=== PATIENT | female | born 1970 | race Caucasian/White ===

== ENCOUNTER 2021-05-11 21:18 | Emergency (ER) | payer OTHER, SELFPAY ==
[2021-05-11 21:56] VITALS: BP 192/111; PULSE 107; RESP 19; TEMP 36.9; O2SAT 97; BMI 44.2
[2021-05-11 22:13] LABS: COVID-19 Test Positive (Negative)
--- NOTE | 2021-05-11 22:53 | ED.URI ---
HPI - URI/Sore Throat General Chief Complaint: Upper Respiratory Symptoms Stated Complaint: + covid sob exhaustion Time Seen by Provider: 05/11/21 22:51 Source: patient Mode of arrival: ambulatory History of Present Illness HPI Narrative: 50-year-old female who states she was exposed to COVID this past Wednesday and began having symptoms on Wednesday with headache, fatigue, diarrhea, dry cough, and sore throat. Related Data Allergies Allergy/AdvReac Type Severity Reaction Status Date / Time shellfish derived Allergy Swelling Verified 05/11/21 22:01 Review of Systems Review of Systems: Pertinent positives and negatives as stated in HPI 10 point review systems is otherwise negative. PMFSH Past Medical History Source: nursing notes reviewed Social History Social History Advance Directives: No Advance Directives Information Provided: No Patient : No Physical Exam Vital Signs: Vital Signs: Last Vital Signs Temp 98.4 F 05/11/21 21:56 Pulse 104 H 05/11/21 23:51 Resp 17 05/11/21 23:51 BP 170/90 H 05/11/21 23:51 Pulse Ox 98 05/11/21 23:51 BMI result Body Mass Index 44.2 VITAL SIGNS: Reviewed. GENERAL: Well developed, well nourished, in no acute distress. HEAD: Normocephalic/atraumatic EYES: PERRLA, EOMI EARS: Ext canals without abnormality, TMs non-bulging and non-erythematous NOSE: Nares patent bilateral OROPHARYNX: no oral lesions noted, posterior pharynx clear and non-erythematous without noted tonsillar enlargement/erythema/exudates NECK: Supple, no adenopathy LUNGS: Normal breath sounds. No adventitious sounds or accessory muscle use. SpO2<98> CARDIOVASCULAR: Regular rate and rhythm without noted murmurs NEUROLOGIC: Alert and oriented x 4. Course Course Course Narrative: 50-year-old female with history and clinical presentation consistent with viral syndrome and on review patient is COVID-19 positive is otherwise afebrile and oxygenating at 98% room air. Patient was informed results and instructed on isolation procedures and discharged home in stable condition. MDM - URI/Sore Throat Lab Data Labs: Lab Results 05/11/21 Range/Units 22:02 COVID-19 ([facility]A) Positive A (Negative) COVID-19 Clin Com See Note Discharge Plan Discharge Clinical Impression: Lab test positive for detection of COVID-19 virus, Viral syndrome Patient Disposition: Home, Self-Care Instructions: Viral Syndrome (ED), COVID-19 (Coronavirus Disease 2019) (ED) Additional Instructions: 1. You must isolate yourself for the next 14 days as per all state, Federal guidelines. 2. Use [id number] Tylenol/ibuprofen as needed for body aches, temperatures greater than 100.4. 3. Set up a telemedicine appointment with your primary care provider tomorrow morning for re-evaluation in 2-3 days. Return to the ER for worsening symptoms. Interventions: ED Discharge Assessment Last Done: 05/11/21 23:51 Discharge Date/Time: 05/11/21 23:52
[2021-05-11] MEDS: Acetaminophen 325 MG TABLET 975 MG PO (23:44)
[2021-05-11] MEDS: Ibuprofen 400 MG TABLET PO (23:44)
[2021-05-11 23:51] VITALS: BP 170/90; PULSE 104; RESP 17; O2SAT 98
== END 2021-05-11 23:52 | disposition home or self-care (01) ==
PROVIDERS: Emergency Provider Student in an Organized Health Care Education/Training Program
DX: U07.1 COVID-19 (principal); B34.9 Viral infection, unspecified
CPT/HCPCS: 36415; 87635; 99283

== ENCOUNTER 2022-08-02 12:26 | Emergency (ER) | payer OTHER, SELFPAY ==
--- NOTE | ~2022-08-02 | CT_ITS ---
EXAMINATION: CT abdomen pelvis wo IV con CLINICAL INFORMATION: Right flank pain COMPARISON: No prior CT available for comparison. TECHNIQUE: Multidetector volumetric imaging was performed from the superior aspect of the liver through the pubic symphysis , noncontrasted study. Sagittal and coronal reformatted images were obtained on the technologist's workstation. This CT examination was performed using dose optimization techniques as appropriate, variously including the following: *Automated exposure control *Adjustment of mA and/or kV according to patient size (this includes techniques or standardized protocols for targeted exams where dose is matched to indication/reason for exam; i.e. extremities or head) *Use of iterative reconstruction technique DLP: 891 mGy-cm FINDINGS: LOWER THORAX: Included lung bases are clear. HEPATOBILIARY: Hypodensity in the right lobe of the liver 0.4 by 0.7 cm not well characterized on this noncontrast CT scan. Could be a cyst or a small hemangioma, Liver otherwise unremarkable. GALLBLADDER: Gallbladder unremarkable. SPLEEN: Spleen is normal in size. PANCREAS: No focal mass or ductal dilatation. STOMACH AND GASTROINTESTINAL TRACT: Stomach is grossly unremarkable. There is no bowel distention or thickening. No CT evidence of appendicitis. ADRENALS: No adrenal nodules. KIDNEYS/URETERS: There is mild perinephric fat stranding around the right kidney and right renal pelvis, right ureteric, without significant ureteric dilatation hydronephrosis or radiodense stone, could be sequela of possible nephritis, recently passed stone, cystitis, reflux among others. No hydronephrosis on either side. URINARY BLADDER: Circumferential wall thickening of the urinary bladder in parts due to its nondilation, this also has been described with possible cystitis. PELVIC VISCERA: Unremarkable PERITONEUM: No free air or fluid. LYMPH NODES: No lymphadenopathy. VASCULAR:Abdominal aorta normal in size, no aneurysm found. BONES, ABDOMINAL WALL AND SOFT TISSUES: Age-appropriate changes of the spine and skeletal system, no destructive osteolytic or osteosclerotic bone lesion found CT/CT abdomen pelvis wo IV con IMPRESSION: * There is mild perinephric fat stranding around the right kidney and right renal pelvis, also around the proximal right ureteric, without significant ureteric dilatation or radiodense stone, this could be sequela of possible infection or inflammatory nephritis, ureteritis, versus recently passed stone, versus cystitis, or reflux among others. * Circumferential wall thickening of the urinary bladder in parts due to its nondilation, this also has been described with possible cystitis. Please correlate with patient's laboratory data. * Subcentimeter hypodensity in the right lobe of the liver not well characterized on this noncontrast CT scan, could be a cyst or a small hemangioma. If patient high-risk consider correlation with follow-up investigation starting with ultrasound.
--- NOTE | 2022-08-02 12:40 | ED_ITS ---
HPI - Abdominal Pain General Chief Complaint: Urogenital-Female <Stephanie Freeman NP - Last Filed: 08/02/22 12:43> Stated Complaint: ? Kidney Stones <Stephanie Freeman NP - Last Filed: 08/02/22 12:43> Time Seen by Provider: 08/02/22 13:00 <Stephanie Freeman NP - Last Filed: 08/02/22 12:43> Source: patient <Juan Amaya MD - Last Filed: 08/02/22 15:41> Mode of arrival: ambulatory <Juan Amaya MD - Last Filed: 08/02/22 15:41> Limitations: no limitations <Juan Amaya MD - Last Filed: 08/02/22 15:41> History of Present Illness HPI narrative: 51-year-old female with otherwise healthy presented today with increase urinary frequency, dysuria, patient's symptoms started 6 days ago, patient woke up this morning with severe right lower back pain, no fever, no chills complain of some nausea but no vomiting, normal bowel movement and normal passing gas. No significant past surgical history to the abdomen. <Juan Amaya MD - Last Fi led: 08/02/22 15:41> Related Data Home Medications: Previous Rx's Medication Instructions Recorded cefuroxime axetil 500 mg tablet 500 mg PO BID #20 tabs 08/02/22 phenazopyridine 200 mg tablet 200 mg PO TID 6 doses #6 tabs 08/02/22 (Pyridium) <Stephanie Freeman NP - Last Filed: 08/02/22 12:43> Allergies/Adverse Reactions: Allergies Allergy/AdvReac Type Severity Reaction Status Date / Time shellfish derived Allergy Swelling Verified 05/11/21 22:01 <Stephanie Freeman NP - Last Filed: 08/02/22 12:43> Review of Systems Review of Systems All other systems are reviewed and are negative Constitutional: Reports as per HPI and Reports no additional constitutional complaints Eyes: Reports as per HPI and Reports no additional eye complaints Reports system reviewed and no additional complaints, except as documented Cardiovascular: Reports as per HPI and Reports no additional cardiovascular complaints Respiratory: Reports as per HPI and Reports no additional respiratory complaints Gastrointestinal: Reports as per HPI and Reports no additional gastrointestinal complaints Genitourinary: Reports no additional female genitourinary complaints Musculoskeletal: Reports no additional musculoskeletal complaints Skin/Breast: Reports system reviewed and no additional complaints, except as docu Psychiatric: Reports no additional psychiatric complaints Endocrine: Reports no additional endocrine complaints Hematologic/Lymphatic: Reports no additional hematologic/lymphatic complaints Allergic/Immunologic: Reports no additional allergic/immunologic complaints Reports system reviewed and no additional complaints, except as documented and Reports Abnormal speech present <Juan Amaya MD - Last Filed: 08/02/22 15:41> [facility] Social History Social History: Social History Advance Directives: No Advance Directives Information Provided: Yes <Stephanie Freeman NP - Last Filed: 08/02/22 12:43> Physical Exam ED Vital Signs: Vital Signs - 24 hr 08/02/22 12:41 08/02/22 14:09 Temperature 97 F 98.9 F Pulse Rate 130 H 105 H Respiratory Rate 18 13 Blood Pressure 207/113 H 156/98 H Pulse Oximetry 98 96 Oxygen Delivery Method Room Air Room Air BMI result Body Mass Index 46.0 <Stephanie Freeman NP - Last Filed: 08/02/22 12:43> Vital Signs - 24 hr 08/02/22 12:41 08/02/22 14:09 Temperature 97 F 98.9 F Pulse Rate 130 H 105 H Respiratory Rate 18 13 Blood Pressure 207/113 H 156/98 H Pulse Oximetry 98 96 Oxygen Delivery Method Room Air Room Air BMI result Body Mass Index 46.0 Vital signs have been reviewed as appeared to be correct. Blood pressure normal. Heart rate elevated. Respiration rate normal. Temperature normal. Oxygen saturation normal. <Juan Amaya MD - Last Filed: 08/02/22 15:41> Appearance: Alert. Oriented X3. No acute distress. Head: Normal external exam. Normocephalic. Atraumatic. No Garcia signs noted. No raccoon eyes noted Eyes: PERRLA. EOMI. Conjunctiva and sclera normal. Eyelids normal. ENT: TM's Normal. Pharynx normal. Uvula midline. Moist mucous membranes. No trismus noted. No drooling noted. No muffled voice noted. Neck: Normal inspection. Neck supple. FROM. No adenopathy. Thyroid Normal. No meningeal signs. No neck mass noted. CVS: Normal heart rate and rhythm. Heart sound normal. No murmurs noted. Pulses normal throughout. Respiratory: No respiratory distress. Painless inspiration. Breath sounds normal. No wheezes/rales/rhonchi noted. Chest nontender. No accessory muscle usage noted or decreased air movement noted. Abdomen: Soft and nontender. Bowel sounds normal in all 4 quadrants. No distention noted. No organomegaly noted. No visible injury noted. Back: Right CVA tenderness. Full range of motion noted. Skin: Skin warm and dry. Normal skin color. Normal skin turgor. No rash es/lesions/lacerations noted. Extremities: No lower extremity edema. Extremities exhibit normal range of motion. Extremities nontender. Neuro: Oriented X 3. Cranial nerve exam: II-XII are grossly intact No motor deficit. No sensory deficit. Reflexes normal. <Juan Amaya MD - Last Filed: 08/02/22 15:41> Course Course Course Narrative: This is a rapid medical exam. Deferred additional HPI, ROS, PE to primary provider. 51 yo female with no known medical problems here with 6 days of urinary pressure, frequency, voiding small amounts and right lower back pain w/ nausea. No fevers, chills. Will obtain labs, UA, ur preg. Hypetensive in triage, tachycardic. ?secondary to pain. <Stephanie Freeman NP - Last Filed: 08/02/22 12:43> Reevaluation(s) Reevaluation #1: 51-year-old female came in with right flank pain after having few days of dysuria and frequency urination. Physical exam and CT are consistent with right pyelonephritis patient will get 1st dose of ceftriaxone and will be going home on cefuroxime for 10 days patient was encouraged to drink plenty of fluids and follow up with her PCP. Initially when patient came in with hypertensive and tachycardic which is due to right CVA pain that is improved after was given pain medication. <Juan Amaya MD - Last Filed: 08/02/22 15:41> Time: 14:32 <Juan Amaya MD - Last Filed: 08/02/22 15:41> Medical Decision Making Differential Diagnosis Differential Diagnoses: The differential diagnosis associated with the presentation includes (Back pain, obstructing uropathy, pyelonephritis, colitis, diverticulitis, myofascial pain) <Juan Amaya MD - Last Filed: 08/02/22 15:41> Lab Data MDM Lab Attestation statement: I reviewed the patient's lab results. <Juan Amaya MD - Last Filed: 08/02/22 15:41> Result Diagrams: 08/02/22 12:54 08/02/22 12:54 <Stephanie Freeman NP - Last Filed: 08/02/22 12:43> Labs: Lab Results 08/02/22 08/02/22 08/02/22 Range/Units 12:51 12:51 12:51 WBC (4.8-10.8) X10*3/uL RBC (4.20-5.50) X10*6/uL Hgb (12.0-16.0) g/dl Hct (37.0-47.0) % MCV (80.0-98.0) fL MCH (27.0-33.0) pg MCHC (31.0-35.0) g/dl RDW (11.0-16.0) % Plt Count (160-400) X10*3/uL MPV (9.4-12.3) fL Immature Gran % (Auto) (0.0-0.4) % Neut % (Auto) (45-73) % Lymph % (Auto) (20-40) % [place] % (Auto) (2-11) % Eos % (Auto) (0-4) % Baso % (Auto) (0-2) % Lymph # (Auto) (1.2-4.9) X10*3/uL [place] # (Auto) (0.1-1.2) X10*3/uL Eos # (Auto) (0.0-0.4) X10*3/uL Baso # (Auto) (0.0-0.2) X10*3/uL Abs Immat Gran (auto) (0.00-0.03) X10*3/uL Absolute Neuts (auto) (2.0-8.3) x10*3/uL Absolute Nucleated RBC (0.0-0.012) X10*3/uL Nucleated RBC % (auto) (0.0-0.2) /100WBC Sodium (135-145) mmol/L Potassium (3.3-5.1) mmol/L Chloride (96-108) mmol/L Carbon Dioxide (22-29) mmol/L Anion Gap (12-20) BUN (9-16) mg/dL Creatinine (0.5-1.4) mg/dL Estim Creat Clear Calc Estimated GFR Random Glucose (60-115) mg/dL Lactic Acid (0.5-2.0) mmol/L Calcium (8.4-10.2) mg/dL Total Bilirubin (0.0-1.0) mg/dL Direct Bilirubin (0.0-0.5) mg/dL AST (5-31) U/L ALT (0-31) U/L Alkaline Phosphatase (39-117) U/L Total Protein (6.5-8.0) g/dL Albumin (3.5-5.0) g/dL Urine Color Dark Yellow Urine Appearance Turbid Urine pH 6.0 (5.0-9.0) Ur Specific [place] 1.020 (1.005-1.025) Urine Protein >=1000 (4+) H (Neg-Trace) mg/dL Urine Glucose (UA) Negative (Negative) mg/dL Urine Ketones Trace (Negative) mg/dL Urine Blood Large (3+) H (Negative) Urine Nitrite Positive H (Negative) Ur Leukocyte Esterase Large (3+) H (Negative) Urine RBC >20 H (0-2) /HPF Urine WBC >50 H (0-5) /HPF Ur Squamous Epith Cells 3-5 (0-2) /HPF Urine Bacteria 3+ (None Seen) Hyaline Casts 0-2 (0-2) /LPF Urine Test NEGATIVE (NEGATIVE) COVID-19 ([facility]IRA) Negative (Negative) COVID-19 Clin Com See Note 08/02/22 08/02/22 08/02/22 Range/Units 12:54 12:54 14:04 WBC 10.7 (4.8-10.8) X10*3/uL RBC 4.53 (4.20-5.50) X10*6/uL Hgb 14.3 (12.0-16.0) g/dl Hct 43.0 (37.0-47.0) % MCV 94.9 (80.0-98.0) fL MCH 31.6 (27.0-33.0) pg MCHC 33.3 (31.0-35.0) g/dl RDW 12.4 (11.0-16.0) % Plt Count 266 (160-400) X10*3/uL MPV 11.3 (9.4-12.3) fL Immature Gran % (Auto) 0.4 (0.0-0.4) % Neut % (Auto) 82.4 H (45-73) % Lymph % (Auto) 8.6 L (20-40) % [place] % (Auto) 5.9 (2-11) % Eos % (Auto) 2.2 (0-4) % Baso % (Auto) 0.5 (0-2) % Lymph # (Auto) 0.9 L (1.2-4.9) X10*3/uL [place] # (Auto) 0.6 (0.1-1.2) X10*3/uL Eos # (Auto) 0.2 (0.0-0.4) X10*3/uL Baso # (Auto) 0.1 (0.0-0.2) X10*3/uL Abs Immat Gran (auto) 0.04 H (0.00-0.03) X10*3/uL Absolute Neuts (auto) 8.8 H (2.0-8.3) x10*3/uL Absolute Nucleated RBC 0.000 (0.0-0.012) X10*3/uL Nucleated RBC % (auto) 0.0 (0.0-0.2) /100WBC Sodium 144 (135-145) mmol/L Potassium 3.9 (3.3-5.1) mmol/L Chloride 105 (96-108) mmol/L Carbon Dioxide 25 (22-29) mmol/L Anion Gap 18 (12-20) BUN 8 L (9-16) mg/dL Creatinine 0.78 (0.5-1.4) mg/dL Estim Creat Clear Calc 108.2 Estimated GFR > 60 Random Glucose 111 (60-115) mg/dL Lactic Acid 1.2 (0.5-2.0) mmol/L Calcium 9.6 (8.4-10.2) mg/dL Total Bilirubin 1.8 H (0.0-1.0) mg/dL Direct Bilirubin 0.4 (0.0-0.5) mg/dL AST 12 (5-31) U/L ALT 18 (0-31) U/L Alkaline Phosphatase 94 (39-117) U/L Total Protein 6.9 (6.5-8.0) g/dL Albumin 4.4 (3.5-5.0) g/dL Urine Color Urine Appearance Urine pH (5.0-9.0) Ur Specific [place] (1.005-1.025) Urine Protein (Neg-Trace) mg/dL Urine Glucose (UA) (Negative) mg/dL Urine Ketones (Negative) mg/dL Urine Blood (Negative) Urine Nitrite (Negative) Ur Leukocyte Esterase (Negative) Urine RBC (0-2) /HPF Urine WBC (0-5) /HPF Ur Squamous Epith Cells (0-2) /HPF Urine Bacteria (None Seen) Hyaline Casts (0-2) /LPF Urine Test (NEGATIVE) COVID-19 ([facility]IRA) (Negative) COVID-19 Clin Com <Stephanie Freeman [employer] - Last Filed: 08/02/22 12:43> Lab Results 08/02/22 08/02/22 08/02/22 Range/Units 12:51 12:51 12:51 WBC (4.8-10.8) X10*3/uL RBC (4.20-5.50) X10*6/uL Hgb (12.0-16.0) g/dl Hct (37.0-47.0) % MCV (80.0-98.0) fL MCH (27.0-33.0) pg MCHC (31.0-35.0) g/dl RDW (11.0-16.0) % Plt Count (160-400) X10*3/uL MPV (9.4-12.3) fL Immature Gran % (Auto) (0.0-0.4) % Neut % (Auto) (45-73) % Lymph % (Auto) (20-40) % [place] % (Auto) (2-11) % Eos % (Auto) (0-4) % Baso % (Auto) (0-2) % Lymph # (Auto) (1.2-4.9) X10*3/uL [place] # (Auto) (0.1-1.2) X10*3/uL Eos # (Auto) (0.0-0.4) X10*3/uL Baso # (Auto) (0.0-0.2) X10*3/uL Abs Immat Gran (auto) (0.00-0.03) X10*3/uL Absolute Neuts (auto) (2.0-8.3) x10*3/uL Absolute Nucleated RBC (0.0-0.012) X10*3/uL Nucleated RBC % (auto) (0.0-0.2) /100WBC Sodium (135-145) mmol/L Potassium (3.3-5.1) mmol/L Chloride (96-108) mmol/L Carbon Dioxide (22-29) mmol/L Anion Gap (12-20) BUN (9-16) mg/dL Creatinine (0.5-1.4) mg/dL Estim Creat Clear Calc Estimated GFR Random Glucose (60-115) mg/dL Lactic Acid (0.5-2.0) mmol/L Calcium (8.4-10.2) mg/dL Total Bilirubin (0.0-1.0) mg/dL Direct Bilirubin (0.0-0.5) mg/dL AST (5-31) U/L ALT (0-31) U/L Alkaline Phosphatase (39-117) U/L Total Protein (6.5-8.0) g/dL Albumin (3.5-5.0) g/dL Urine Color Dark Yellow Urine Appearance Turbid Urine pH 6.0 (5.0-9.0) Ur Specific [place] 1.020 (1.005-1.025) Urine Protein >=1000 (4+) H (Neg-Trace) mg/dL Urine Glucose (UA) Negative (Negative) mg/dL Urine Ketones Trace (Negative) mg/dL Urine Blood Large (3+) H (Negative) Urine Nitrite Positive H (Negative) Ur Leukocyte Esterase Large (3+) H (Negative) Urine RBC >20 H (0-2) /HPF Urine WBC >50 H (0-5) /HPF Ur Squamous Epith Cells 3-5 (0-2) /HPF Urine Bacteria 3+ (None Seen) Hyaline Casts 0-2 (0-2) /LPF Urine Test NEGATIVE (NEGATIVE) COVID-19 (HIRA) Negative (Negative) COVID-19 Clin Com See Note 08/02/22 08/02/22 08/02/22 Range/Units 12:54 12:54 14:04 WBC 10.7 (4.8-10.8) X10*3/uL RBC 4.53 (4.20-5.50) X10*6/uL Hgb 14.3 (12.0-16.0) g/dl Hct 43.0 (37.0-47.0) % MCV 94.9 (80.0-98.0) fL MCH 31.6 (27.0-33.0) pg MCHC 33.3 (31.0-35.0) g/dl RDW 12.4 (11.0-16.0) % Plt Count 266 (160-400) X10*3/uL MPV 11.3 (9.4-12.3) fL Immature Gran % (Auto) 0.4 (0.0-0.4) % Neut % (Auto) 82.4 H (45-73) % Lymph % (Auto) 8.6 L (20-40) % [place] % (Auto) 5.9 (2-11) % Eos % (Auto) 2.2 (0-4) % Baso % (Auto) 0.5 (0-2) % Lymph # (Auto) 0.9 L (1.2-4.9) X10*3/uL [place] # (Auto) 0.6 (0.1-1.2) X10*3/uL Eos # (Auto) 0.2 (0.0-0.4) X10*3/uL Baso # (Auto) 0.1 (0.0-0.2) X10*3/uL Abs Immat Gran (auto) 0.04 H (0.00-0.03) X10*3/uL Absolute Neuts (auto) 8.8 H (2.0-8.3) x10*3/uL Absolute Nucleated RBC 0.000 (0.0-0.012) X10*3/uL Nucleated RBC % (auto) 0.0 (0.0-0.2) /100WBC Sodium 144 (135-145) mmol/L Potassium 3.9 (3.3-5.1) mmol/L Chloride 105 (96-108) mmol/L Carbon Dioxide 25 (22-29) mmol/L Anion Gap 18 (12-20) BUN 8 L (9-16) mg/dL Creatinine 0.78 (0.5-1.4) mg/dL Estim Creat Clear Calc 108.2 Estimated GFR > 60 Random Glucose 111 (60-115) mg/dL Lactic Acid 1.2 (0.5-2.0) mmol/L Calcium 9.6 (8.4-10.2) mg/dL Total Bilirubin 1.8 H (0.0-1.0) mg/dL Direct Bilirubin 0.4 (0.0-0.5) mg/dL AST 12 (5-31) U/L ALT 18 (0-31) U/L Alkaline Phosphatase 94 (39-117) U/L Total Protein 6.9 (6.5-8.0) g/dL Albumin 4.4 (3.5-5.0) g/dL Urine Color Urine Appearance Urine pH (5.0-9.0) Ur Specific [place] (1.005-1.025) Urine Protein (Neg-Trace) mg/dL Urine Glucose (UA) (Negative) mg/dL Urine Ketones (Negative) mg/dL Urine Blood (Negative) Urine Nitrite (Negative) Ur Leukocyte Esterase (Negative) Urine RBC (0-2) /HPF Urine WBC (0-5) /HPF Ur Squamous Epith Cells (0-2) /HPF Urine Bacteria (None Seen) Hyaline Casts (0-2) /LPF Urine Test (NEGATIVE) COVID-19 (HIRA) (Negative) COVID-19 Clin Com <Juan Amaya MD - Last Filed: 08/02/22 15:41> Independent Interpretation I performed an independent interpretation of an: CT Scan (Abdomen: Mild perinephric fat stranding around the right kidney.) <Juan Amaya MD - Last Filed: 08/02/22 15:41> Radiology Impression Discussion of test interpretation with radiology: I have reviewed the radiologist's reading. <Juan Amaya MD - Last Filed: 08/02/22 15:41> Medications Administered Discontinued Medications Generic Name Dose Route Start Last Admin Trade Name Freq PRN Reason Stop Dose Admin Cefuroxime Axetil 500 mg 08/02/22 14:38 08/02/22 15:33 Cefuroxime Axetil 500 Mg Tablet PO 08/02/22 14:39 500 mg ONCE ONE Administration Sodium Chloride 1,000 mls @ 999 mls/hr 08/02/22 13:10 08/02/22 13:34 Ns IV 08/02/22 14:10 999 mls/hr .Q1H1M ONE Administration Ceftriaxone Sodium 1 gm/ 50 mls @ 100 mls/hr 08/02/22 13:40 08/02/22 15:33 Sodium Chloride IV 08/02/22 14:09 Infused ONCE ONE Infusion Morphine Sulfate 4 mg 08/02/22 13:10 08/02/22 13:37 Morphine Sulfate 4 Mg/Ml Cartridge IVPUSH 08/02/22 13:11 4 mg ONCE ONE Administration Protocol <Stephanie Freeman NP - Last Filed: 08/02/22 12:43> Medications Administered Discontinued Medications Generic Name Dose Route Start Last Admin Trade Name Freq PRN Reason Stop Dose Admin Cefuroxime Axetil 500 mg 08/02/22 14:38 08/02/22 15:33 Cefuroxime Axetil 500 Mg Tablet PO 08/02/22 14:39 500 mg ONCE ONE Administration Sodium Chloride 1,000 mls @ 999 mls/hr 08/02/22 13:10 08/02/22 13:34 Ns IV 08/02/22 14:10 999 mls/hr .Q1H1M ONE Administration Ceftriaxone Sodium 1 gm/ 50 mls @ 100 mls/hr 08/02/22 13:40 08/02/22 15:33 Sodium Chloride IV 08/02/22 14:09 Infused ONCE ONE Infusion Morphine Sulfate 4 mg 08/02/22 13:10 08/02/22 13:37 Morphine Sulfate 4 Mg/Ml Cartridge IVPUSH 08/02/22 13:11 4 mg ONCE ONE Administration Protocol <Juan Amaya MD - Last Filed: 08/02/22 15:41> Discharge Plan Discharge Clinical Impression: Urinary tract infection, Pyelonephritis <Stephanie Freeman NP - Last Filed: 08/02/22 12:43> Patient Disposition: Home, Self-Care <Stephanie Freeman NP - Last Filed: 08/02/22 12:43> Instructions: Kidney Infection (ED) <Stephanie Freeman NP - Last Filed: 08/02/22 12:43> Additional Instructions: Drink plenty of water, take your antibiotic as prescribed. <Stephanie Freeman NP - Last Filed: 08/02/22 12:43> Prescriptions: New cefuroxime axetil 500 mg tablet 500 mg PO BID Qty: 20 0RF phenazopyridine [Pyridium] 200 mg tablet 200 mg PO TID Qty: 6 0RF <Stephanie Freeman NP - Last Filed: 08/02/22 12:43>
[2022-08-02 12:41] VITALS: BP 207/113; PULSE 130; RESP 18; TEMP 36.1; O2SAT 98; BMI 46.0
[2022-08-02 13:00] LABS: MANUAL DIFF FLAG NO
[2022-08-02 13:06] LABS: Basophils Absolute Auto 0.1 X10*3/uL (0.0-0.2); Basophils Percent Auto 0.5 % (0-2); Eosinophils Absolute Auto 0.2 X10*3/uL (0.0-0.4); Eosinophils Percent Auto 2.2 % (0-4); Hemoglobin 14.3 g/dl (12.0-16.0); Imm Gran Abs Auto 0.04 X10*3/uL (0.00-0.03); Imm Gran Pct Auto 0.4 % (0.0-0.4); Lymphocytes Absolute Auto 0.9 X10*3/uL (1.2-4.9); Lymphocytes Percent Auto 8.6 % (20-40); Mean Corpuscular HGB Conc 33.3 g/dl (31.0-35.0); Mean Corpuscular Hemoglobin 31.6 pg (27.0-33.0); Mean Corpuscular Volume 94.9 fL (80.0-98.0); Mean Platelet Volume 11.3 fL (9.4-12.3); Monocytes Absolute Auto 0.6 X10*3/uL (0.1-1.2); Monocytes Percent Auto 5.9 % (2-11); Neutrophils Absolute Auto 8.8 x10*3/uL (2.0-8.3); Neutrophils Percent Auto 82.4 % (45-73); Platelet Count 266 X10*3/uL (160-400); Red Blood Count 4.53 X10*6/uL (4.20-5.50); Red Cell Distribution Width 12.4 % (11.0-16.0); White Blood Count 10.7 X10*3/uL (4.8-10.8)
--- NOTE | 2022-08-02 13:10 | ECG_ITS ---
Test Reason : FLANK PAIN Blood Pressure : / mmHG Vent. Rate : 100 BPM Atrial Rate : 100 BPM P-R Int : 150 ms QRS Dur : 094 ms QT Int : 336 ms P-R-T Axes : 051 -16 047 degrees QTc Int : 433 ms Normal sinus rhythm Cannot rule out Anterior infarct , age undetermined Abnormal ECG No previous ECGs available Referred By: Juan Amaya Electronically Signed By:CATHY MOROCHO
[2022-08-02 13:13] LABS: Appearance Urine Turbid; Color Urine Dark Yellow; Glucose Urine UA Negative (Negative); Leukocyte Esterase Urine Large (3+) (Negative); Nitrite Urine Positive (Negative); UMIC TRIGGER UACC YES; Urine Blood Large (3+) (Negative); Urine Ketones Trace mg/dL (Negative); Urine Protein >=1000 (4+) mg/dL (Neg-Trace)
[2022-08-02 13:14] LABS: UPreg QC Valid YES; Urine Pregnancy NEGATIVE (NEGATIVE)
[2022-08-02 13:17] LABS: Alanine Aminotransferase 18 U/L (0-31); Albumin Level 4.4 g/dL (3.5-5.0); Alkaline Phosphatase 94 U/L (39-117); Anion Gap 18 (12-20); Aspartate Amino Transferase 12 U/L (5-31); Bilirubin Direct 0.4 mg/dL (0.0-0.5); Bilirubin Total 1.8 mg/dL (0.0-1.0); Blood Urea Nitrogen 8 mg/dL (9-16); Calcium 9.6 mg/dL (8.4-10.2); Carbon Dioxide 25 mmol/L (22-29); Chloride 105 mmol/L (96-108); Creatinine Clr Calc Pharmacy 108.2; Estimated Glomerular Filt Rate > 60; Glucose Random 111 mg/dL (60-115); Potassium 3.9 mmol/L (3.3-5.1); Sodium 144 mmol/L (135-145); Total Protein 6.9 g/dL (6.5-8.0)
[2022-08-02 13:18] LABS: COVID-19 Test Negative (Negative); IDNOW Serial# 16C4AD1C
[2022-08-02 13:27] LABS: Bacteria Urine 3+ (None Seen); Hyaline Casts Urine 0-2 /LPF (0-2); RBC Urine >20 /HPF (0-2); UACC Culture Trigger YES; WBC Urine >50 /HPF (0-5)
[2022-08-02] MEDS: 0.9 % Sodium Chloride 1,000 ML 999 ML IV (13:34)
[2022-08-02] MEDS: Morphine Sulfate 4 MG/ML CARTRIDGE IVPUSH (13:37)
[2022-08-02 14:09] VITALS: BP 156/98; PULSE 105; RESP 13; TEMP 37.2; O2SAT 96
[2022-08-02] MEDS: cefTRIAXone sodium 1 GM in 0.9 % Sodium Chloride 50 ML IV (14:20)
[2022-08-02 14:28] LABS: Lactic Acid 1.2 mmol/L (0.5-2.0)
[2022-08-02] MEDS: Ketorolac Tromethamine 30 MG/ML VIAL IVPUSH (16:04)
== END 2022-08-02 16:10 | disposition home or self-care (01) ==
PROVIDERS: Nurse Practitioner Family; Emergency Provider Emergency Medicine
DX: N39.0 Urinary tract infection, site not specified (principal); N12 Tubulo-interstitial nephritis, not specified as acute or chronic; R35.0 Frequency of micturition; M54.50 Low back pain, unspecified; R10.31 Right lower quadrant pain; Z20.822 Contact with and (suspected) exposure to COVID-19; Z20.828 Contact with and (suspected) exposure to other viral communicable diseases; Z79.899 Other long term (current) drug therapy
CPT/HCPCS: 36415; 74176; 80048; 80076; 81001; 81003; 81025; 83605; 85025; 87040; 87077; 87086; 87088; 87186; 87205; 87635; 93005; 96361; 96365; 96375; 99285; J0696; J1885; J2270

== ENCOUNTER 2022-08-03 20:44 | Inpatient (IN) | payer OTHER, SELFPAY ==
[2022-08-03 20:51] VITALS: PULSE 112; RESP 16; TEMP 36.9; O2SAT 99; BMI 46.0
--- NOTE | 2022-08-03 20:51 | ED_ITS ---
HPI - General Adult General Chief complaint: Extremity Injury, Lower <BRITTNI Georges - Last Filed: 08/03/22 20:55> Stated complaint: Abnormal labs <BRITTNI Georges - Last Filed: 08/03/22 20:55> Time Seen by Provider: 08/03/22 21:53 <BRITTNI Georges - Last Filed: 08/03/22 20:55> Source: patient <Veronika Jaimes MD - Last Filed: 08/03/22 22:07> Mode of arrival: ambulatory <Veronika Jaimes MD - Last Filed: 08/03/22 22:07> Limitations: no limitations <Veronika Jaimes MD - Last Filed: 08/03/22 22:07> History of Present Illness HPI narrative: Patient comes to the emergency room after being called from the hospital, to let her know that her blood tested positive for gram-negative rods. Patient states that she was seen here yesterday, diagnosed with pyelonephritis. Patient was sent home appropriately with ceftriaxone and Pyridium. Patient states that overall she has had suprapubic pressure and bilateral flank pain for approximately 1 week. Patient states that the pain got much worse today in the flank area. <Veronika Jaimes MD - Last Filed: 08/03/22 22:07> Related Data Home medications: Previous Rx's Medication Instructions Recorded cefuroxime axetil 500 mg tablet 500 mg PO BID #20 tabs 08/02/22 phenazopyridine 200 mg tablet 200 mg PO TID 6 doses #6 tabs 08/02/22 (Pyridium) <BRITTNI Georges - Last Filed: 08/03/22 20:55> Allergies/adverse reactions: Allergies Allergy/AdvReac Type Severity Reaction Status Date / Time shellfish derived Allergy Swelling Verified 05/11/21 22:01 <BRITTNI Georges - Last Filed: 08/03/22 20:55> Review of Systems Review of Systems: Constitutional : No Weight loss, No Fever, No Chills, No Night Sweats, No Fatigue, No Malaise ENT/Mouth : No Hearing loss, No Ear Pain, No Nasal Congestion, No Sinus Pain, No Hoarseness, No sore throat, No Rhinorrhea, No Swallowing Difficulty Eyes: No Eye Pain, No Swelling, No Redness, No Foreign Body, No Discharge, No Vision Changes Cardiovascular : No Chest Pain, No SOB, No Dyspnea on Exertion, No Orthopnea, No Edema, No Palpitations Respiratory : No Cough, No Sputum, No Wheezing, No Smoke Exposure, No Dyspnea Gastrointestinal : No Nausea, No Vomiting, No Diarrhea, No Constipation, No abdominal Pain, No Hematochezia, No Melena Genitourinary : no irregular bleeding, No Dysuria, No Urinary Frequency, No Hematuria, No Urinary Incontinence, No Urgency, complaining of worsening bilateral flank p ain and suprapubic pressure Musculoskeletal : No joint pain, No Myalgias, No Joint Swelling Skin : No Skin Lesions, No rash Neuro : No Weakness, No Numbness, No Paresthesias, No Loss of Consciousness, No Dizziness, No Headache Psych : No Anxiety/Panic, No Depression, No SI/HI/AH/VH, No Social Issues, Heme/Lymph: No Bruising, No Bleeding,No Lymphadenopathy Endocrine : No Polyuria, No Polydipsia, No Temperature Intolerance <Veronika Jaimes MD - Last Filed: 08/03/22 22:07> Physical Exam ED Vital Signs: Vital Signs - 24 hr 08/03/22 20:51 Temperature 98.5 F Pulse Rate 112 H Respiratory Rate 16 Pulse Oximetry 99 Oxygen Delivery Method Room Air BMI result Body Mass Index 46.0 <BRITTNI Georges - Last Filed: 08/03/22 20:55> Vital Signs - 24 hr 08/03/22 20:51 Temperature 98.5 F Pulse Rate 112 H Respiratory Rate 16 Pulse Oximetry 99 Oxygen Delivery Method Room Air BMI result Body Mass Index 46.0 <Veronika Jaimes MD - Last Filed: 08/03/22 22:07> Const Other: Appearance: Alert. Oriented X3. No acute distress. Eyes: Pupils equal, round and reactive to light. ENT: Pharynx normal. Neck: Normal inspection. Neck supple. No lymph nodes noted. No crepitus CVS: Normal heart rate and rhythm. Pulses normal. Normal S1 and S2 Respiratory: No respiratory distress. Breath sounds normal. No Wheezing. No rales Abdomen: Soft , moderate suprapubic tenderness/discomfort. No rigidity. No distention. Positive CVA tenderness Skin: Skin warm and dry. Normal skin color. Normal skin turgor. Extremities: No lower extremity edema. No Lacerations. No Rash Neuro: Oriented X 3. No motor deficit. No sensory deficit. Moving all extremities. No slurred speech. CN 2 through 12 grossly intact Psych: calm, cooperative, normal affect <Veronika Jaimes MD - Last Filed: 08/03/22 22:07> Course Course Course Narrative: RME - 51 yo female with recently diagnosed pyelonephritis, seen here yesterday and discharged with cefuroxime and pyridium who presents to the ER after being called today with results of GNR in her blood x2 blood cultures. Repeat cultures, lactic acid, labs. Will require admission for IV abx. <BRITTNI Georges - Last Filed: 08/03/22 20:55> Medical Decision Making Medical Decision Making [facility] Narrative: -patient was started on IV antibiotics. Fluids. -patient being admitted for gram-negative antwan bacteremia I discussed the patient with Dr. Beckett, patient being admitted <Veronika Jaimes MD - Last Filed: 08/03/22 22:07> Differential Diagnosis Differential Diagnoses: The differential diagnosis associated with the presentation includes (UTI, pyelonephritis, bacteremia) <Veronika Jaimes MD - Last Filed: 08/03/22 22:07> Admission/Observation Consideration of admission/observation: Escalation of care including admission/observation considered <Veronika Jaimes MD - Last Filed: 08/03/22 22:07> Consult Healthcare Provider Management of the patient was discussed with: Hospitalist <Veronika Jaimes MD - Last Filed: 08/03/22 22:07> Lab Data [facility] Lab Attestation statement: I reviewed the patient's lab results. <Veronika Jaimes MD - Last Filed: 08/03/22 22:07> Result Diagrams: 08/03/22 21:30 08/03/22 21:30 <BRITTNI Georges - Last Filed: 08/03/22 20:55> Labs: Lab Results 08/03/22 08/03/22 08/03/22 Range/Units 21:30 21:30 21:30 WBC 8.6 (4.8-10.8) X10*3/uL RBC 4.35 (4.20-5.50) X10*6/uL Hgb 13.8 (12.0-16.0) g/dl Hct 40.4 (37.0-47.0) % MCV 92.9 (80.0-98.0) fL MCH 31.7 (27.0-33.0) pg MCHC 34.2 (31.0-35.0) g/dl RDW 12.2 (11.0-16.0) % Plt Count 237 (160-400) X10*3/uL MPV 10.7 (9.4-12.3) fL Immature Gran % (Auto) 0.3 (0.0-0.4) % Neut % (Auto) 70.3 (45-73) % Lymph % (Auto) 14.6 L (20-40) % [place] % (Auto) 11.7 H (2-11) % Eos % (Auto) 2.8 (0-4) % Baso % (Auto) 0.3 (0-2) % Lymph # (Auto) 1.3 (1.2-4.9) X10*3/uL [place] # (Auto) 1.0 (0.1-1.2) X10*3/uL Eos # (Auto) 0.2 (0.0-0.4) X10*3/uL Baso # (Auto) 0.0 (0.0-0.2) X10*3/uL Abs Immat Gran (auto) 0.03 (0.00-0.03) X10*3/uL Absolute Neuts (auto) 6.1 (2.0-8.3) x10*3/uL Absolute Nucleated RBC 0.000 (0.0-0.012) X10*3/uL Nucleated RBC % (auto) 0.0 (0.0-0.2) /100WBC Sodium 141 (135-145) mmol/L Potassium 3.9 (3.3-5.1) mmol/L Chloride 106 (96-108) mmol/L Carbon Dioxide 25 (22-29) mmol/L Anion Gap 14 (12-20) BUN 9 (9-16) mg/dL Creatinine 0.67 (0.5-1.4) mg/dL Estim Creat Clear Calc 126.0 Estimated GFR > 60 Random Glucose 100 (60-115) mg/dL Lactic Acid (0.5-2.0) mmol/L Calcium 9.0 D (8.4-10.2) mg/dL Magnesium 1.8 (1.6-2.6) mg/dL Total Bilirubin 0.8 (0.0-1.0) mg/dL Direct Bilirubin 0.2 (0.0-0.5) mg/dL AST 23 (5-31) U/L ALT 25 (0-31) U/L Alkaline Phosphatase 87 (39-117) U/L Total Protein 6.9 (6.5-8.0) g/dL Albumin 4.3 (3.5-5.0) g/dL Urine Color Urine Appearance Urine pH (5.0-9.0) Ur Specific [place] (1.005-1.025) Urine Protein (Neg-Trace) mg/dL Urine Glucose (UA) (Negative) mg/dL Urine Ketones (Negative) mg/dL Urine Blood (Negative) Urine Nitrite (Negative) Ur Leukocyte Esterase (Negative) Urine RBC (0-2) /HPF Urine WBC (0-5) /HPF Ur Squamous Epith Cells (0-2) /HPF Urine Bacteria (None Seen) Hyaline Casts (0-2) /LPF COVID-19 (HIRA) Negative (Negative) COVID-19 Clin Com See Note 08/03/22 08/03/22 Range/Units 21:31 21:31 WBC (4.8-10.8) X10*3/uL RBC (4.20-5.50) X10*6/uL Hgb (12.0-16.0) g/dl Hct (37.0-47.0) % MCV (80.0-98.0) fL MCH (27.0-33.0) pg MCHC (31.0-35.0) g/dl RDW (11.0-16.0) % Plt Count (160-400) X10*3/uL MPV (9.4-12.3) fL Immature Gran % (Auto) (0.0-0.4) % Neut % (Auto) (45-73) % Lymph % (Auto) (20-40) % [place] % (Auto) (2-11) % Eos % (Auto) (0-4) % Baso % (Auto) (0-2) % Lymph # (Auto) (1.2-4.9) X10*3/uL [place] # (Auto) (0.1-1.2) X10*3/uL Eos # (Auto) (0.0-0.4) X10*3/uL Baso # (Auto) (0.0-0.2) X10*3/uL Abs Immat Gran (auto) (0.00-0.03) X10*3/uL Absolute Neuts (auto) (2.0-8.3) x10*3/uL Absolute Nucleated RBC (0.0-0.012) X10*3/uL Nucleated RBC % (auto) (0.0-0.2) /100WBC Sodium (135-145) mmol/L Potassium (3.3-5.1) mmol/L Chloride (96-108) mmol/L Carbon Dioxide (22-29) mmol/L Anion Gap (12-20) BUN (9-16) mg/dL Creatinine (0.5-1.4) mg/dL Estim Creat Clear Calc Estimated GFR Random Glucose (60-115) mg/dL Lactic Acid 0.7 (0.5-2.0) mmol/L Calcium (8.4-10.2) mg/dL Magnesium (1.6-2.6) mg/dL Total Bilirubin (0.0-1.0) mg/dL Direct Bilirubin (0.0-0.5) mg/dL AST (5-31) U/L ALT (0-31) U/L Alkaline Phosphatase (39-117) U/L Total Protein (6.5-8.0) g/dL Albumin (3.5-5.0) g/dL Urine Color Dark Yellow Urine Appearance Clear Urine pH 6.5 (5.0-9.0) Ur Specific [place] 1.015 (1.005-1.025) Urine Protein Trace (Neg-Trace) mg/dL Urine Glucose (UA) Negative (Negative) mg/dL Urine Ketones Negative (Negative) mg/dL Urine Blood Moderate (2+) H (Negative) Urine Nitrite Positive H (Negative) Ur Leukocyte Esterase Small (1+) H (Negative) Urine RBC 11-20 H (0-2) /HPF Urine WBC 6-10 H (0-5) /HPF Ur Squamous Epith Cells 6-10 (0-2) /HPF Urine Bacteria Trace (None Seen) Hyaline Casts 0-2 (0-2) /LPF COVID-19 (HIRA) (Negative) COVID-19 Clin Com <BRITTNI Georges - Last Filed: 08/03/22 20:55> Lab Results 08/03/22 08/03/22 08/03/22 Range/Units 21:30 21:30 21:30 WBC 8.6 (4.8-10.8) X10*3/uL RBC 4.35 (4.20-5.50) X10*6/uL Hgb 13.8 (12.0-16.0) g/dl Hct 40.4 (37.0-47.0) % MCV 92.9 (80.0-98.0) fL MCH 31.7 (27.0-33.0) pg MCHC 34.2 (31.0-35.0) g/dl RDW 12.2 (11.0-16.0) % Plt Count 237 (160-400) X10*3/uL MPV 10.7 (9.4-12.3) fL Immature Gran % (Auto) 0.3 (0.0-0.4) % Neut % (Auto) 70.3 (45-73) % Lymph % (Auto) 14.6 L (20-40) % [place] % (Auto) 11.7 H (2-11) % Eos % (Auto) 2.8 (0-4) % Baso % (Auto) 0.3 (0-2) % Lymph # (Auto) 1.3 (1.2-4.9) X10*3/uL [place] # (Auto) 1.0 (0.1-1.2) X10*3/uL Eos # (Auto) 0.2 (0.0-0.4) X10*3/uL Baso # (Auto) 0.0 (0.0-0.2) X10*3/uL Abs Immat Gran (auto) 0.03 (0.00-0.03) X10*3/uL Absolute Neuts (auto) 6.1 (2.0-8.3) x10*3/uL Absolute Nucleated RBC 0.000 (0.0-0.012) X10*3/uL Nucleated RBC % (auto) 0.0 (0.0-0.2) /100WBC Sodium 141 (135-145) mmol/L Potassium 3.9 (3.3-5.1) mmol/L Chloride 106 (96-108) mmol/L Carbon Dioxide 25 (22-29) mmol/L Anion Gap 14 (12-20) BUN 9 (9-16) mg/dL Creatinine 0.67 (0.5-1.4) mg/dL Estim Creat Clear Calc 126.0 Estimated GFR > 60 Random Glucose 100 (60-115) mg/dL Lactic Acid (0.5-2.0) mmol/L Calcium 9.0 D (8.4-10.2) mg/dL Magnesium 1.8 (1.6-2.6) mg/dL Total Bilirubin 0.8 (0.0-1.0) mg/dL Direct Bilirubin 0.2 (0.0-0.5) mg/dL AST 23 (5-31) U/L ALT 25 (0-31) U/L Alkaline Phosphatase 87 (39-117) U/L Total Protein 6.9 (6.5-8.0) g/dL Albumin 4.3 (3.5-5.0) g/dL Urine Color Urine Appearance Urine pH (5.0-9.0) Ur Specific [place] (1.005-1.025) Urine Protein (Neg-Trace) mg/dL Urine Glucose (UA) (Negative) mg/dL Urine Ketones (Negative) mg/dL Urine Blood (Negative) Urine Nitrite (Negative) Ur Leukocyte Esterase (Negative) Urine RBC (0-2) /HPF Urine WBC (0-5) /HPF Ur Squamous Epith Cells (0-2) /HPF Urine Bacteria (None Seen) Hyaline Casts (0-2) /LPF COVID-19 ([facility]IRA) Negative (Negative) COVID-19 Clin Com See Note 08/03/22 08/03/22 Range/Units 21:31 21:31 WBC (4.8-10.8) X10*3/uL RBC (4.20-5.50) X10*6/uL Hgb (12.0-16.0) g/dl Hct (37.0-47.0) % MCV (80.0-98.0) fL MCH (27.0-33.0) pg MCHC (31.0-35.0) g/dl RDW (11.0-16.0) % Plt Count (160-400) X10*3/uL MPV (9.4-12.3) fL Immature Gran % (Auto) (0.0-0.4) % Neut % (Auto) (45-73) % Lymph % (Auto) (20-40) % [place] % (Auto) (2-11) % Eos % (Auto) (0-4) % Baso % (Auto) (0-2) % Lymph # (Auto) (1.2-4.9) X10*3/uL [place] # (Auto) (0.1-1.2) X10*3/uL Eos # (Auto) (0.0-0.4) X10*3/uL Baso # (Auto) (0.0-0.2) X10*3/uL Abs Immat Gran (auto) (0.00-0.03) X10*3/uL Absolute Neuts (auto) (2.0-8.3) x10*3/uL Absolute Nucleated RBC (0.0-0.012) X10*3/uL Nucleated RBC % (auto) (0.0-0.2) /100WBC Sodium (135-145) mmol/L Potassium (3.3-5.1) mmol/L Chloride (96-108) mmol/L Carbon Dioxide (22-29) mmol/L Anion Gap (12-20) BUN (9-16) mg/dL Creatinine (0.5-1.4) mg/dL Estim Creat Clear Calc Estimated GFR Random Glucose (60-115) mg/dL Lactic Acid 0.7 (0.5-2.0) mmol/L Calcium (8.4-10.2) mg/dL Magnesium (1.6-2.6) mg/dL Total Bilirubin (0.0-1.0) mg/dL Direct Bilirubin (0.0-0.5) mg/dL AST (5-31) U/L ALT (0-31) U/L Alkaline Phosphatase (39-117) U/L Total Protein (6.5-8.0) g/dL Albumin (3.5-5.0) g/dL Urine Color Dark Yellow Urine Appearance Clear Urine pH 6.5 (5.0-9.0) Ur Specific [place] 1.015 (1.005-1.025) Urine Protein Trace (Neg-Trace) mg/dL Urine Glucose (UA) Negative (Negative) mg/dL Urine Ketones Negative (Negative) mg/dL Urine Blood Moderate (2+) H (Negative) Urine Nitrite Positive H (Negative) Ur Leukocyte Esterase Small (1+) H (Negative) Urine RBC 11-20 H (0-2) /HPF Urine WBC 6-10 H (0-5) /HPF Ur Squamous Epith Cells 6-10 (0-2) /HPF Urine Bacteria Trace (None Seen) Hyaline Casts 0-2 (0-2) /LPF COVID-19 ([facility]IRA) (Negative) COVID-19 Clin Com <Veronika Jaimes MD - Last Filed: 08/03/22 22:07> Critical Care Time Critical Care Time Critical Care Time: Yes <Veronika Jaimes MD - Last Filed: 08/03/22 22:07> Total Critical Care Time: 30 <Veronika Jaimes MD - Last Filed: 08/03/22 22:07> Attestation: I have personally provided critical care time. Time includes review of lab data, radiology results, discussion with consultants, and monitoring for potential decompensation. Intervention performed as documented. <Veronika Jaimes MD - Last Filed: 08/03/22 22:07> Discharge Plan Discharge Clinical Impression: Pyelonephritis <BRITTNI Georges - Last Filed: 08/03/22 20:55> Patient Disposition: Admitted As Inpatient <BRITTNI Georges - Last Filed: 08/03/22 20:55> Prescriptions: No Action cefuroxime axetil 500 mg tablet 500 mg PO BID Qty: 20 0RF phenazopyridine [Pyridium] 200 mg tablet 200 mg PO TID Qty: 6 0RF <BRITTNI Georges - Last Filed: 08/03/22 20:55>
--- NOTE | 2022-08-03 21:35 | MHC.EDTECH ---
pt blood drawn including blood culture 1 st and 2nd set , lactic acid and covid swab collected all sent to lab .
[2022-08-03 21:38] LABS: MANUAL DIFF FLAG NO
[2022-08-03 21:39] LABS: Basophils Percent Auto 0.3 % (0-2); Eosinophils Absolute Auto 0.2 X10*3/uL (0.0-0.4); Eosinophils Percent Auto 2.8 % (0-4); Hematocrit 40.4 % (37.0-47.0); Hemoglobin 13.8 g/dl (12.0-16.0); Imm Gran Abs Auto 0.03 X10*3/uL (0.00-0.03); Imm Gran Pct Auto 0.3 % (0.0-0.4); Lymphocytes Absolute Auto 1.3 X10*3/uL (1.2-4.9); Lymphocytes Percent Auto 14.6 % (20-40); Mean Corpuscular HGB Conc 34.2 g/dl (31.0-35.0); Mean Corpuscular Hemoglobin 31.7 pg (27.0-33.0); Mean Corpuscular Volume 92.9 fL (80.0-98.0); Mean Platelet Volume 10.7 fL (9.4-12.3); Monocytes Percent Auto 11.7 % (2-11); Neutrophils Absolute Auto 6.1 x10*3/uL (2.0-8.3); Neutrophils Percent Auto 70.3 % (45-73); Platelet Count 237 X10*3/uL (160-400); Red Blood Count 4.35 X10*6/uL (4.20-5.50); Red Cell Distribution Width 12.2 % (11.0-16.0); White Blood Count 8.6 X10*3/uL (4.8-10.8)
[2022-08-03 21:41] LABS: Appearance Urine Clear; Color Urine Dark Yellow; Glucose Urine UA Negative (Negative); Leukocyte Esterase Urine Small (1+) (Negative); Nitrite Urine Positive (Negative); PH 6.5 (5.0-9.0); Specific Gravity - Urine 1.015 (1.005-1.025); UMIC TRIGGER UACC YES; Urine Blood Moderate (2+) (Negative); Urine Ketones Negative (Negative); Urine Protein Trace mg/dL (Neg-Trace)
[2022-08-03 21:48] LABS: Lactic Acid 0.7 mmol/L (0.5-2.0)
[2022-08-03 21:53] LABS: COVID-19 Test Negative (Negative); IDNOW Serial# 6674DD1D
[2022-08-03 21:54] LABS: Alanine Aminotransferase 25 U/L (0-31); Albumin Level 4.3 g/dL (3.5-5.0); Alkaline Phosphatase 87 U/L (39-117); Anion Gap 14 (12-20); Aspartate Amino Transferase 23 U/L (5-31); Bilirubin Direct 0.2 mg/dL (0.0-0.5); Bilirubin Total 0.8 mg/dL (0.0-1.0); Blood Urea Nitrogen 9 mg/dL (9-16); Carbon Dioxide 25 mmol/L (22-29); Chloride 106 mmol/L (96-108); Estimated Glomerular Filt Rate > 60; Glucose Random 100 mg/dL (60-115); Magnesium 1.8 mg/dL (1.6-2.6); Potassium 3.9 mmol/L (3.3-5.1); Sodium 141 mmol/L (135-145); Total Protein 6.9 g/dL (6.5-8.0)
[2022-08-03 22:00] LABS: Bacteria Urine Trace (None Seen); Hyaline Casts Urine 0-2 /LPF (0-2); UACC Culture Trigger YES
[2022-08-03 22:10] VITALS: BP 181/96; PULSE 96; RESP 18; O2SAT 96
[2022-08-03] MEDS: 0.9 % Sodium Chloride 1,000 ML 999 ML IV (22:10)
[2022-08-03] MEDS: Ketorolac Tromethamine 30 MG/ML VIAL IVPUSH (22:21)
[2022-08-03] MEDS: cefTRIAXone sodium 1 GM in 0.9 % Sodium Chloride 50 ML IV (22:22)
[2022-08-03] MEDS: 0.9 % Sodium Chloride 1,000 ML 999 ML IVCONT (22:23)
--- NOTE | 2022-08-03 22:27 | PC.NURSE ---
pt medicated per provider order, reporting 8/10 back/right kidney pain, 20G IV placed left wrist, 2L NS running. pt pending admission orders/bed assignment.
--- NOTE | 2022-08-03 22:39 | PHA.MEDREC ---
Pharmacy Consult ? Medication Reconciliation Pharmacy has completed the medication reconciliation. SPOKE WITH PT
--- NOTE | 2022-08-03 23:05 | PM.IMHP ---
History of Present Illness Date of Service: 08/03/22 Chief Complaint: Blood cx positive 51F with hx High BMI p/w Positive blood Cx. pt p/w Dysuria for a week and was noted pyelopnephritis on CT; given cefuroxime and sent home. today pt was called back due to positive blood cx- growing GNR. Pt reports mild right flank pain; no hematuria. subjective chills. Denies chest pain/sob/dizziness. ROS negative. ER course: per ER physician: pt vitals and labs table; given ceftriaxone. PMFSH Social History Household Members: Children Housing: House Do you presently have visiting nurse or other home services: No Alcohol intake: current Alcohol intake frequency: a few times a month Alcohol type: beer and hard liquor Patient Tobacco Use Status: Never used Tobacco service: No Current occupational status: employed Meds Allergies Allergy/AdvReac Type Severity Reaction Status Date / Time shellfish derived Allergy Swelling Verified 05/11/21 22:01 Active Medications: Current Medications Acetaminophen (Acetaminophen 325 Mg Tablet) 650 mg PO Q6H PRN PRN Reason: Pain, Mild (Pain Scale 1-3) Heparin Sodium (Porcine) (Heparin Sodium,Porcine 5,000 Unit/Ml Vial) 5,000 unit SUBCUT Q8H CIERRA Hydromorphone HCl (Hydromorphone Hcl 1 Mg/Ml Syringe) 0.5 mg IVPUSH Q4H PRN; Protocol PRN Reason: Pain, Severe (Pain Scale 7-10) Melatonin (Melatonin 3 Mg Tablet) 6 mg PO BEDTIME PRN PRN Reason: Insomnia Pharmacy Consult (Consult Rx Perform Med Rec) 1 each MISCELLANE ONCE PRN PRN Reason: Consult order Senna (Sennosides 8.6 Mg Tablet) 17.2 mg PO BEDTIME PRN PRN Reason: Constipation Sodium Chloride (0.9 % Sodium Chloride Flush 3 Ml Syringe) 3 ml IVFLUSH QSHIFT CIERRA Physical Exam Vital Signs and Narrative: Vital Signs: Last Vital Signs Temp 98.5 F 08/03/22 20:51 Pulse 96 08/03/22 22:10 Resp 18 08/03/22 22:10 BP 181/96 H 08/03/22 22:10 Pulse Ox 96 08/03/22 22:10 O2 Del Method 08/03/22 22:10 BMI result Body Mass Index 46.0 GCOE: NAD? Eyes: Pupils equal, round and reactive to light. ENT: Pharynx normal. Neck: Normal inspection.? Neck supple. No lymph nodes noted. No crepitus CVS: Normal S1 and S2 Pulm: No respiratory distress.? Breath sounds normal. No Wheezing. No rales Abdomen: Soft , moderate suprapubic tenderness/discomfort.? No rigidity. No distention.? Positive Right CVA tenderness Skin: Skin warm and dry.? Normal skin color.? Normal skin turgor. Extremities: No lower extremity edema. No Lacerations. No Rash Neuro: Oriented X 3.? No motor deficit.? No sensory deficit. Results Labs 08/03/22 21:30 08/03/22 21:30 Labs: Laboratory Results - last 24 hr 08/03/22 08/03/22 08/03/22 21:30 21:30 21:30 MCV 92.9 MCH 31.7 MCHC 34.2 RDW 12.2 Plt Count 237 MPV 10.7 Immature Gran % (Auto) 0.3 Neut % (Auto) 70.3 Lymph % (Auto) 14.6 L [place] % (Auto) 11.7 H Eos % (Auto) 2.8 Baso % (Auto) 0.3 Lymph # (Auto) 1.3 [place] # (Auto) 1.0 Eos # (Auto) 0.2 Baso # (Auto) 0.0 Abs Immat Gran (auto) 0.03 Absolute Neuts (auto) 6.1 Absolute Nucleated RBC 0.000 Nucleated RBC % (auto) 0.0 Anion Gap 14 Estim Creat Clear Calc 126.0 Estimated GFR > 60 Random Glucose 100 Lactic Acid Calcium 9.0 D Magnesium 1.8 Total Bilirubin 0.8 Direct Bilirubin 0.2 AST 23 ALT 25 Alkaline Phosphatase 87 Total Protein 6.9 Albumin 4.3 Urine Color Urine Appearance Urine pH Ur Specific [place] Urine Protein Urine Glucose (UA) Urine Ketones Urine Blood Urine Nitrite Ur Leukocyte Esterase Urine RBC Urine WBC Ur Squamous Epith Cells Urine Bacteria Hyaline Casts COVID-19 ([facility]RIA) Negative COVID-19 Clin Com See Note 08/03/22 08/03/22 21:31 21:31 MCV MCH MCHC RDW Plt Count MPV Immature Gran % (Auto) Neut % (Auto) Lymph % (Auto) [place] % (Auto) Eos % (Auto) Baso % (Auto) Lymph # (Auto) [place] # (Auto) Eos # (Auto) Baso # (Auto) Abs Immat Gran (auto) Absolute Neuts (auto) Absolute Nucleated RBC Nucleated RBC % (auto) Anion Gap Estim Creat Clear Calc Estimated GFR Random Glucose Lactic Acid 0.7 Calcium Magnesium Total Bilirubin Direct Bilirubin AST ALT Alkaline Phosphatase Total Protein Albumin Urine Color Dark Yellow Urine Appearance Clear Urine pH 6.5 Ur Specific [place] 1.015 Urine Protein Trace Urine Glucose (UA) Negative Urine Ketones Negative Urine Blood Moderate (2+) H Urine Nitrite Positive H Ur Leukocyte Esterase Small (1+) H Urine RBC 11-20 H Urine WBC 6-10 H Ur Squamous Epith Cells 6-10 Urine Bacteria Trace Hyaline Casts 0-2 COVID-19 ([facility]IRA) COVID-19 Clin Com Assessment and Plan (1) Pyelonephritis: Status: Resolved Plan 51F with hx High BMI p/w Positive blood Cx; Initially presented yesterday with Dysuria for a week and was noted pyelopnephritis on CT. Pyelonephritis/Bacteremia: c/w ceftriaxone f/u Cultures ID consult Indcidnetal CT finding: Noted ?Subcentimeter hypodensity in the right lobe of the liver not wellcharacterized on this noncontrast CT scan, could be a cyst or a small hemangioma Out pt f/u with PCP DVT ppx: SQH Full code Time Spent With Patient Time: Total time managing care of this patient today ____ minutes. Quality Stroke Does the patient have a stroke diagnosis?: No VTE Prior VTE?: No VTE Risk Level:: Medical - moderate - high VTE Device Contraindication: Treatment Not Indicated VTE Drug Contraindication: N/A - Med Ordered
[2022-08-04] VITALS (8 sets, daily range): BP systolic 144–174; BP diastolic 68–100; PULSE 77–86; RESP 16–19; TEMP 35.9–37.1; O2SAT 96–98; BMI 48.2
[2022-08-04] MEDS: Heparin Sodium,Porcine 5,000 UNIT/ML VIAL 5000 UNIT SUBCUT ×3 (00:58→16:43)
[2022-08-04] MEDS: 0.9 % Sodium Chloride Flush 3 ML SYRINGE IVFLUSH ×3 (00:59→16:45)
[2022-08-04] MEDS: HYDROmorphone HCl 1 MG/ML SYRINGE 0.5 MG IVPUSH ×3 (01:05→13:29)
[2022-08-04] MEDS: Melatonin 3 MG TABLET 6 MG PO (03:05)
[2022-08-04 06:49] LABS: MANUAL DIFF FLAG NO
[2022-08-04 06:57] LABS: Basophils Absolute Auto 0.1 X10*3/uL (0.0-0.2); Basophils Percent Auto 0.9 % (0-2); Eosinophils Absolute Auto 0.3 X10*3/uL (0.0-0.4); Hematocrit 36.6 % (37.0-47.0); Hemoglobin 12.3 g/dl (12.0-16.0); Imm Gran Abs Auto 0.01 X10*3/uL (0.00-0.03); Imm Gran Pct Auto 0.2 % (0.0-0.4); Lymphocytes Absolute Auto 1.5 X10*3/uL (1.2-4.9); Lymphocytes Percent Auto 25.8 % (20-40); Mean Corpuscular HGB Conc 33.6 g/dl (31.0-35.0); Mean Corpuscular Hemoglobin 31.5 pg (27.0-33.0); Mean Corpuscular Volume 93.8 fL (80.0-98.0); Mean Platelet Volume 10.9 fL (9.4-12.3); Monocytes Absolute Auto 0.8 X10*3/uL (0.1-1.2); Monocytes Percent Auto 13.8 % (2-11); Neutrophils Absolute Auto 3.2 x10*3/uL (2.0-8.3); Neutrophils Percent Auto 54.3 % (45-73); Platelet Count 211 X10*3/uL (160-400); Red Cell Distribution Width 12.3 % (11.0-16.0); White Blood Count 5.8 X10*3/uL (4.8-10.8)
[2022-08-04 07:23] LABS: Anion Gap 13 (12-20); Blood Urea Nitrogen 8 mg/dL (9-16); Calcium 8.2 mg/dL (8.4-10.2); Carbon Dioxide 25 mmol/L (22-29); Chloride 107 mmol/L (96-108); Creatinine Clr Calc Pharmacy 152.3; Estimated Glomerular Filt Rate > 60; Glucose Random 87 mg/dL (60-115); Potassium 3.6 mmol/L (3.3-5.1); Sodium 141 mmol/L (135-145)
--- NOTE | 2022-08-04 09:53 | P.PNIM_ITS ---
Subjective Subjective Date of Service: 08/04/22 Review of Systems follow-up Gram-negative antwan bacteremia Patient called back to the hospital Reports some right flank pain Denies nausea, vomiting, diarrhea Physical Exam Vital Signs: Vital Signs: Last Vital Signs Temp 97.1 F 08/04/22 07:11 Pulse 77 08/04/22 07:11 Resp 16 08/04/22 07:11 BP 144/80 H 08/04/22 07:11 Pulse Ox 97 08/04/22 07:11 O2 Del Method 08/04/22 07:11 BMI result Body Mass Index 48.2 Appearing in no acute distress lung sounds are clear to auscultation heart regular rate rhythm, clear S1, S2 positive bowel sounds, abdomen is soft, nontender neuro patient is alert x3, no focal deficits Objective Data Active Medications Acetaminophen (Acetaminophen 325 Mg Tablet) 650 mg PO Q6H PRN PRN Reason: Pain, Mild (Pain Scale 1-3) Heparin Sodium (Porcine) (Heparin Sodium,Porcine 5,000 Unit/Ml Vial) 5,000 unit SUBCUT Q8H [facility] Last Admin: 08/04/22 08:35 Dose: 5,000 unit Documented By: SEJAL Hydromorphone HCl (Hydromorphone Hcl 1 Mg/Ml Syringe) 0.5 mg IVPUSH Q4H PRN; Protocol PRN Reason: Pain, Severe (Pain Scale 7-10) Last Admin: 08/04/22 08:35 Dose: 0.5 mg Documented By: SEJAL Ceftriaxone Sodium 1 gm/ (Sodium Chloride) 50 mls @ 100 mls/hr IV Q24H [facility] Melatonin (Melatonin 3 Mg Tablet) 6 mg PO BEDTIME PRN PRN Reason: Insomnia Last Admin: 08/04/22 03:05 Dose: 6 mg Documented By: ALETHA Pharmacy Consult (Consult Rx Perform Med Rec) 1 each MISCELLANE ONCE PRN PRN Reason: Consult order Senna (Sennosides 8.6 Mg Tablet) 17.2 mg PO BEDTIME PRN PRN Reason: Constipation Sodium Chloride (0.9 % Sodium Chloride Flush 3 Ml Syringe) 3 ml IVFLUSH QSHIFT [facility] Last Admin: 08/04/22 08:36 Dose: 3 ml Documented By: SEJAL Labs 08/04/22 06:44 08/04/22 06:44 Labs: Laboratory Results - last 24 hr 08/03/22 08/03/22 08/03/22 21:30 21:30 21:30 MCV 92.9 MCH 31.7 MCHC 34.2 RDW 12.2 Plt Count 237 MPV 10.7 Immature Gran % (Auto) 0.3 Neut % (Auto) 70.3 Lymph % (Auto) 14.6 L [place] % (Auto) 11.7 H Eos % (Auto) 2.8 Baso % (Auto) 0.3 Lymph # (Auto) 1.3 [place] # (Auto) 1.0 Eos # (Auto) 0.2 Baso # (Auto) 0.0 Abs Immat Gran (auto) 0.03 Absolute Neuts (auto) 6.1 Absolute Nucleated RBC 0.000 Nucleated RBC % (auto) 0.0 Anion Gap 14 Estim Creat Clear Calc 126.0 Estimated GFR > 60 Random Glucose 100 Lactic Acid Calcium 9.0 D Magnesium 1.8 Total Bilirubin 0.8 Direct Bilirubin 0.2 AST 23 ALT 25 Alkaline Phosphatase 87 Total Protein 6.9 Albumin 4.3 Urine Color Urine Appearance Urine pH Ur Specific [place] Urine Protein Urine Glucose (UA) Urine Ketones Urine Blood Urine Nitrite Ur Leukocyte Esterase Urine RBC Urine WBC Ur Squamous Epith Cells Urine Bacteria Hyaline Casts COVID-19 ([facility]) Negative COVID-19 Clin Com See Note 08/03/22 08/03/22 08/04/22 21:31 21:31 06:44 MCV 93.8 MCH 31.5 MCHC 33.6 RDW 12.3 Plt Count 211 MPV 10.9 Immature Gran % (Auto) 0.2 Neut % (Auto) 54.3 Lymph % (Auto) 25.8 [place] % (Auto) 13.8 H Eos % (Auto) 5.0 H Baso % (Auto) 0.9 Lymph # (Auto) 1.5 [place] # (Auto) 0.8 Eos # (Auto) 0.3 Baso # (Auto) 0.1 Abs Immat Gran (auto) 0.01 Absolute Neuts (auto) 3.2 Absolute Nucleated RBC 0.000 Nucleated RBC % (auto) 0.0 Anion Gap Estim Creat Clear Calc Estimated GFR Random Glucose Lactic Acid 0.7 Calcium Magnesium Total Bilirubin Direct Bilirubin AST ALT Alkaline Phosphatase Total Protein Albumin Urine Color Dark Yellow Urine Appearance Clear Urine pH 6.5 Ur Specific [place] 1.015 Urine Protein Trace Urine Glucose (UA) Negative Urine Ketones Negative Urine Blood Moderate (2+) H Urine Nitrite Positive H Ur Leukocyte Esterase Small (1+) H Urine RBC 11-20 H Urine WBC 6-10 H Ur Squamous Epith Cells 6-10 Urine Bacteria Trace Hyaline Casts 0-2 COVID-19 ([facility]) COVID-19 Clin Com 08/04/22 06:44 MCV MCH MCHC RDW Plt Count MPV Immature Gran % (Auto) Neut % (Auto) Lymph % (Auto) [place] % (Auto) Eos % (Auto) Baso % (Auto) Lymph # (Auto) [place] # (Auto) Eos # (Auto) Baso # (Auto) Abs Immat Gran (auto) Absolute Neuts (auto) Absolute Nucleated RBC Nucleated RBC % (auto) Anion Gap 13 Estim Creat Clear Calc 152.3 Estimated GFR > 60 Random Glucose 87 Lactic Acid Calcium 8.2 L D Magnesium Total Bilirubin Direct Bilirubin AST ALT Alkaline Phosphatase Total Protein Albumin Urine Color Urine Appearance Urine pH Ur Specific [place] Urine Protein Urine Glucose (UA) Urine Ketones Urine Blood Urine Nitrite Ur Leukocyte Esterase Urine RBC Urine WBC Ur Squamous Epith Cells Urine Bacteria Hyaline Casts COVID-19 ([facility]) COVID-19 Clin Com Assessment and Plan (1) Pyelonephritis: Status: Acute Plan 51F with hx High BMI p/w Positive blood Cx; Initially presented yesterday with Dysuria for a week and was noted pyelopnephritis on CT. Gram-negative antwan Pyelonephritis/Bacteremia Continue ceftriaxone Follow final cultures ID consult DVT ppx: [facility] Attending Dr. Barcenas Full code Continue hospitalization for treatment of Gram-negative antwan bacteremia, awaiting final cultures for treatment Time Spent With Patient Time: Total time managing care of this patient today ____ minutes. Quality Stroke Does the patient have a stroke diagnosis?: No VTE Prior VTE?: No VTE Risk Level:: Medical - moderate - high VTE Device Contraindication: Treatment Not Indicated VTE Drug Contraindication: N/A - Med Ordered
[2022-08-04] MEDS: Acetaminophen 325 MG TABLET 650 MG PO (10:40)
--- NOTE | 2022-08-04 14:43 | MHC.CM.PN ---
Addendum entered by Zelda Galo 08/04/22 14:48: The patient does not have a PCP. The [facility] MD pamphlet was provided to the patient. Original Note: Female 51 DX Bacteremia Patient Lives with her 2 adult children. She is independent with all functional mobility. Covid Vax x2. DP home self care. Patient will arrange for transportation home.
[2022-08-04] MEDS: LORazepam 0.5 MG TABLET 0.25 MG PO (16:44)
[2022-08-04] MEDS: cefTRIAXone sodium 1 GM in 0.9 % Sodium Chloride 50 ML IV (21:41)
[2022-08-05] MEDS: 0.9 % Sodium Chloride Flush 3 ML SYRINGE IVFLUSH ×2 (00:02→09:46)
[2022-08-05] MEDS: Heparin Sodium,Porcine 5,000 UNIT/ML VIAL 5000 UNIT SUBCUT ×2 (00:03→09:46)
[2022-08-05] MEDS: Melatonin 3 MG TABLET 6 MG PO (00:07)
[2022-08-05 07:19] VITALS: BP 139/78; PULSE 80; RESP 18; TEMP 36.5; O2SAT 94
--- NOTE | 2022-08-05 10:52 | P.DS_ITS ---
DS: Providers Provider Date of Service: 08/05/22 Date of admission: 08/03/22 22:20 Primary care physician: Unknown Physician Consults: 08/04/22 08:08 Consult to Infectious Diseases Routine Consulting Provider: [facility] [place] Infectious Disease Reason for consultation: HNR bacteremia Has provider been notified: No Attending physician on discharge: Rhonda Barcenas Discharging clinician: Dafne Gilliam DS: Diagnosis Discharge Diagnosis (1) Pyelonephritis: Status: Acute DS: Summary Hospital Course Hospital Course: HP as per admitting provider 51F with hx High BMI p/w Positive blood Cx. pt p/w Dysuria for a week and was noted pyelopnephritis on CT; given cefuroxime and sent home. today pt was called back due to positive blood cx- growing GNR. Pt reports mild right flank pain; no hematuria. subjective chills. Denies chest pain/sob/dizziness. ROS negative. ER course: per ER physician: pt vitals and labs table; given ceftriaxone . Ecoli Pyelonephritis/Bacteremia Treated with ceftriaxone, 14 days Ceftin on dc Possibly from passed stone vs UTI no retained stone on abd CT, no other abd etiology noted Time Spent with Patient Time attestation: Total time managing care of this patient today ____ minutes. Discharge coordination time: Greater than 30 minutes Quality: Safe Use of Opioids Does Pt have an Active Cancer Diagnosis on the Problem List?: No Quality: Stroke Does the patient have a stroke diagnosis?: No Physical Exam Vital Signs: Vital Signs: Last Vital Signs Temp 97.7 F 08/05/22 07:19 Pulse 80 08/05/22 07:19 Resp 18 08/05/22 07:19 BP 139/78 08/05/22 07:19 Pulse Ox 94 08/05/22 07:19 O2 Del Method 08/05/22 07:19 BMI result Body Mass Index 48.2 Appearing in no acute distress head is normocephalic atraumatic eyes pupils are PERRLA sclera is anicteric mouth throat mucous membranes are intact and moist neck is supple no lymphadenopathy, no JVD noted lung sounds are clear to auscultation heart regular rate rhythm, clear S1, S2 positive bowel sounds, abdomen is soft, nontender neuro patient is alert x3, no focal deficits DS: Data Data Completed and Pending Labs on day of discharge: Preliminary micro results at discharge 08/03/22 21:32 Blood Culture - Preliminary Blood - Venous No growth after 24 hours. 08/03/22 21:30 Blood Culture - Preliminary Blood - Venous No growth after 24 hours. Discharge Plan Discharge Anticipated Discharge Date/Time: 08/05/22 10:49 Patient Disposition: Home, Self-Care Discharge Diagnosis: Pyelonephritis E coli bacteremia Discharge Medications: New cefuroxime axetil 500 mg tablet 500 mg PO BID Qty: 28 0RF Continued phenazopyridine [Pyridium] 200 mg tablet 200 mg PO TID Qty: 6 0RF Discontinued cefuroxime axetil 500 mg tablet 500 mg PO BID Qty: 20 0RF Discharge Orders: Discharge Order (Routine); Ordered 08/05/22 Ordered By: Dafne Gilliam Diet: Advance to usual diet Activity on Discharge: As tolerated Stand Alone Forms: Patient Portal Discharge page Care Plan Goals: complete resolution of symptoms Health Concerns: Pyelonephritis E coli bacteremia Plan of Treatment: Follow-up with primary care provider as needed Take all medications as prescribed Assessment: see discharge summary
--- NOTE | 2022-08-05 12:04 | MHC.CM.PN ---
Patient is discharged today to home self-care. She has arranged for family transport to home.
== END 2022-08-05 12:10 | disposition home or self-care (01) | DRG 463 ==
LOC: HO.ED 22:12 → HO.EDOVER 22:27 → HO.IMC 23:55
PROVIDERS: Physician Assistant; Admitting Provider Hospitalist; Emergency Provider Emergency Medicine; Visit Provider Nurse Practitioner Acute Care
DX: N12 Tubulo-interstitial nephritis, not specified as acute or chronic (principal); R78.81 Bacteremia; B96.20 Unspecified Escherichia coli [E. coli] as the cause of diseases classified elsewhere; Z20.822 Contact with and (suspected) exposure to COVID-19
CPT/HCPCS: 36415; 80048; 80076; 81001; 83605; 83735; 85025; 87040; 87635; 99285; J0696; J1170; J1643; J1885

== ENCOUNTER 2022-08-31 15:42 | Emergency (ER) | payer OTHER, SELFPAY ==
--- NOTE | ~2022-08-31 | CT_ITS ---
EXAMINATION: CT ABDOMEN AND PELVIS WITHOUT CONTRAST CLINICAL INFORMATION: Flank pain, side not specified COMPARISON: CT abdomen pelvis 08/02/2022, 1 month ago TECHNIQUE: Multidetector volumetric imaging was performed from the superior aspect of the liver through the pubic symphysis. Sagittal and coronal reformatted images were obtained on the technologist's workstation. This CT examination was performed using dose optimization techniques as appropriate, variously including the following: *Automated exposure control *Adjustment of mA and/or kV according to patient size (this includes techniques or standardized protocols for targeted exams where dose is matched to indication/reason for exam; i.e. extremities or head) *Use of iterative reconstruction technique DLP: 1044 mGy-cm FINDINGS: LUNG BASES: The visualized lung bases are unremarkable. LIVER, GALLBLADDER, AND BILIARY TREE: The liver is enlarged measuring 19.9 cm in cephalocaudad dimension in size, shape, and attenuation. 2 small subcentimeter water density cysts are present in the right lobe of liver unchanged from prior (3:17 and 25). No worrisome solid focal hepatic lesion or biliary ductal dilatation is present. The gallbladder is unremarkable with no evidence of radiopaque gallstones, gallbladder wall thickening, or obvious pericholecystic inflammatory changes. PANCREAS: Unremarkable. SPLEEN: Unremarkable. ADRENAL GLANDS: Unremarkable. KIDNEYS AND URETERS: The kidneys are normal in size, shape, and attenuation. The previously seen perinephric stranding around the right kidney and ureter has resolved. No hydronephrosis, hydroureter, or calculi seen. BLADDER: Unremarkable. GASTROINTESTINAL TRACT: The small and large bowel are unremarkable. The appendix is unremarkable. ABDOMINAL WALL: Small periumbilical hernia containing only fat. There is a LYMPH NODES: No retroperitoneal lymphadenopathy. VASCULAR: Unremarkable. PELVIC VISCERA: The uterus and adnexa are unremarkable. OSSEOUS STRUCTURES: Degenerative changes are present in the lumbar spine most marked at L4-L5 and L5-S1. No bony destructive lesions. CT/CT abdomen pelvis wo IV con IMPRESSION: 1. A cause for the patient's flank pain has not been found. 2. Incidental note made of an enlarged fatty liver, benign hepatic cysts and degenerative changes in the spine. Fleischner guidelines were followed.
--- NOTE | 2022-08-31 15:52 | ED_ITS ---
HPI - General Adult General Chief complaint: Urogenital-Female <BRITTNI Georges - Last Filed: 08/31/22 16:17> Stated complaint: blood in urine <BRITTNI Georges - Last Filed: 08/31/22 16:17> Time Seen by Provider: 08/31/22 18:37 <BRITTNI Georges - Last Filed: 08/31/22 16:17> Source: patient <Beulah Lewis NP - Last Filed: 08/31/22 20:55> Mode of arrival: ambulatory <eBulah Lewis NP - Last Filed: 08/31/22 20:55> Limitations: no limitations <Beulah Lewis NP - Last Filed: 08/31/22 20:55> History of Present Illness HPI narrative: 51-year-old female presents with several days of bilateral flank pain right greater than the left, hematuria, and bloating. Patient was admitted earlier last month for pyelonephritis, and states that she feels similar to her prior presentation. <Beulah Lewis NP - Last Filed: 08/31/22 20:55> Onset (ago): week(s) (1) <Beulah Lewis NP - Last Filed: 08/31/22 20:55> Location: abdomen <Beulah Lewis NP - Last Filed: 08/31/22 20:55> Severity: severe <Beulah Lewis NP - Last Filed: 08/31/22 20:55> Severity scale (1-10): 9 <Beulah Lewis NP - Last Filed: 08/31/22 20:55> Quality: aching <Beulah Lewis NP - Last Filed: 08/31/22 20:55> Pain Consistency: colicky <Beulah Lewis NP - Last Filed: 08/31/22 20:55> Relieving factors: none <Beulah Lewis NP - Last Filed: 08/31/22 20:55> Exacerbating factors: movement <Beulah Lewis NP - Last Filed: 08/31/22 20:55> Associated symptoms: denies other symptoms <Beulah Lewis NP - Last Filed: 08/31/22 20:55> Treatments prior to arrival: none <Beulah Lewis NP - Last Filed: 08/31/22 20:55> Related Data Home medications: Previous Rx's Medication Instructions Recorded phenazopyridine 200 mg tablet 200 mg PO TID 6 doses #6 tabs 08/02/22 (Pyridium) cefuroxime axetil 500 mg tablet 500 mg PO BID #28 tabs 08/05/22 <BRITTNI Georges - Last Filed: 08/31/22 16:17> Allergies/adverse reactions: Allergies Allergy/AdvReac Type Severity Reaction Status Date / Time shellfish derived Allergy Swelling Verified 05/11/21 22:01 <BRITTNI Georges - Last Filed: 08/31/22 16:17> Review of Systems Review of Systems: Constitutional: No Fever, No Chills Cardiovascular: No Chest Pain, No SOB Respiratory: No Cough, No Sputum, No Wheezing Gastrointestinal: positive Nausea, no Vomiting, No Diarrhea, positive abdominal pain Genitourinary: positive Dysuria, positive urinary frequency, positive Hematuria, positive Flank Pain, positive hesitancy Musculoskeletal: No joint pain, No Myalgias Skin: No Skin Lesions, No rash Neuro: No Weakness, No Numbness, No Headache <Beulah Lewis NP - Last Filed: 08/31/22 20:55> Yes all other systems are reviewed and are negative <Beulah Lewis NP - Last Filed: 08/31/22 20:55> PMFSH Past Medical History Attestation statement: The following information was validated with the patient. <Beulah Lewis NP - Last Filed: 08/31/22 20:55> Source: old records reviewed <Beulah Lewis NP - Last Filed: 08/31/22 20:55> Social History Social History: Social History Household Members: Children Housing: House Do you presently have visiting nurse or other home services: No Alcohol intake: current Alcohol intake frequency: a few times a month Alcohol type: beer and hard liquor Patient Tobacco Use Status: Never used Tobacco Advance Directives: No Advance Directives Information Provided: No service: No Current occupational status: employed <BRITTNI Georges - Last Filed: 08/31/22 16:17> Physical Exam ED Vital Signs: Vital Signs - 24 hr 08/31/22 16:13 08/31/22 18:53 Temperature 97.8 F 98.2 F Pulse Rate 89 89 Respiratory Rate 18 20 Blood Pressure 178/95 H 153/92 H Pulse Oximetry 97 96 Oxygen Delivery Method Room Air Room Air BMI result Body Mass Index 47.8 <BRITTNI Georges - Last Filed: 08/31/22 16:17> Vital Signs - 24 hr 08/31/22 16:13 08/31/22 18:53 Temperature 97.8 F 98.2 F Pulse Rate 89 89 Respiratory Rate 18 20 Blood Pressure 178/95 H 153/92 H Pulse Oximetry 97 96 Oxygen Delivery Method Room Air Room Air BMI result Body Mass Index 47.8 <Beulah Lewis NP - Last Filed: 08/31/22 20:55> Appearance: Alert. Oriented X3. Moderate distress. Eyes: Pupils equal, round and reactive to light. Sclera nonicteric. CVS: Normal heart rate and rhythm. Pulses normal. Respiratory: No respiratory distress. Breath sounds normal. Abdomen: Soft and diffusely tender with right-sided CVA tenderness. No rigidity or rebound. Skin: Skin warm and dry. Normal skin color. Normal skin turgor. Extremities: No lower extremity edema. Gait balanced and coordinated. Neuro: No motor deficit. No sensory deficit. Cranial nerves 2-12 intact. <Beulah Lewis NP - Last Filed: 08/31/22 20:55> Course Course Course Narrative: RME - 51 yo female with history of pyelonephritis with E. coli bacterermia on August 02 presents to the ER for evaluation of hematuria, kidney pain, nausea and abdominal bloating that started 3 days ago. She reports back pain worse on the right. No fevers at home. No dysuria. Plan: UA and labs, cultures ordered given history <BRITTNI Georges - Last Filed: 08/31/22 16:17> RME - 51 yo female with history of pyelonephritis with E. coli bacterermia on August 02 presents to the ER for evaluation of hematuria, kidney pain, nausea and abdominal bloating that started 3 days ago. She reports back pain worse on the right. No fevers at home. No dysuria. Plan: UA and labs, cultures ordered given history 18:43 patient in 10/10 pain. Abdomen is tender with right-sided CVA tenderness. Review of records indicates that patient was admitted on 08/03/2022 for pyelonephritis with sepsis. Patient was discharged on 08/05/2022, and given cefuroxime for 14 days, which she had completed. Labs drawn while patient was in the emergency department waiting room, does have hematuria, with out leukocyte esterase or nitrites. No urine bacteria noted. Lab values are within normal limits, lactic acid 1.4, no indication of organ dysfunction in her lab v alues. No indication of sepsis at this time. COVID is negative. Order for CT abdomen pelvis. 20:40 CT scan of abdomen pelvis is negative for acute findings requiring emergent intervention. The perinephric stranding noted on 08/03/2022 has significantly improved. There were no stones, or any significant findings for her age severe abdominal pain. Patient is alert oriented x4, is nontoxic with stable vital signs that are within normal limits with the exception of her elevated blood pressure 153/92. Will have patient follow-up with her primary care physician. Patient verbalized understanding of and agrees to plan of care discharge home. Verbalized understanding of signs symptoms indicating need for emergent intervention. <Beulah Lewis NP - Last Filed: 08/31/22 20:55> Medications Administered Discontinued Medications Generic Name Dose Route Start Last Admin Trade Name Freq PRN Reason Stop Dose Admin Sodium Chloride 1,000 mls @ 999 mls/hr 08/31/22 18:45 08/31/22 18:52 Ns IVCONT 08/31/22 19:45 999 mls/hr .Q1H1M CIERRA Administration Ketorolac Tromethamine 15 mg 08/31/22 18:43 08/31/22 18:52 Ketorolac Tromethamine 15 Mg/Ml Vial IVPUSH 08/31/22 18:44 15 mg ONCE ONE Administration Morphine Sulfate 4 mg 08/31/22 18:43 08/31/22 18:52 Morphine Sulfate 4 Mg/Ml Cartridge IVPUSH 08/31/22 18:44 4 mg ONCE ONE Administration Protocol Ondansetron HCl 4 mg 08/31/22 18:43 08/31/22 18:52 Ondansetron Hcl 4 Mg/2 Ml Vial IVPUSH 08/31/22 18:44 4 mg ONCE ONE Administration <BRITTNI Georges - Last Filed: 08/31/22 16:17> Medications Administered Discontinued Medications Generic Name Dose Route Start Last Admin Trade Name Jag PRN Reason Stop Dose Admin Sodium Chloride 1,000 mls @ 999 mls/hr 08/31/22 18:45 08/31/22 18:52 Ns IVCONT 08/31/22 19:45 999 mls/hr .Q1H1M CIERRA Administration Ketorolac Tromethamine 15 mg 08/31/22 18:43 08/31/22 18:52 Ketorolac Tromethamine 15 Mg/Ml Vial IVPUSH 08/31/22 18:44 15 mg ONCE ONE Administration Morphine Sulfate 4 mg 08/31/22 18:43 08/31/22 18:52 Morphine Sulfate 4 Mg/Ml Cartridge IVPUSH 08/31/22 18:44 4 mg ONCE ONE Administration Protocol Ondansetron HCl 4 mg 08/31/22 18:43 08/31/22 18:52 Ondansetron Hcl 4 Mg/2 Ml Vial IVPUSH 08/31/22 18:44 4 mg ONCE ONE Administration <Beulah Lewis NP - Last Filed: 08/31/22 20:55> Medical Decision Making Differential Diagnosis Differential Diagnoses: The differential diagnosis associated with the presentation includes <Beulah Lewis NP - Last Filed: 08/31/22 20:55> Lab Data MDM Lab Attestation statement: I reviewed the patient's lab results. <Beulah Lewis NP - Last Filed: 08/31/22 20:55> Result Diagrams: 08/31/22 17:02 08/31/22 17:02 <BRITTNI Georges - Last Filed: 08/31/22 16:17> Labs: Lab Results 08/31/22 08/31/22 08/31/22 Range/Units 16:51 16:52 17:02 WBC 10.3 (4.8-10.8) X10*3/uL RBC 4.30 (4.20-5.50) X10*6/uL Hgb 13.5 (12.0-16.0) g/dl Hct 40.9 (37.0-47.0) % MCV 95.1 (80.0-98.0) fL MCH 31.4 (27.0-33.0) pg MCHC 33.0 (31.0-35.0) g/dl RDW 13.2 (11.0-16.0) % Plt Count 244 (160-400) X10*3/uL MPV 10.9 (9.4-12.3) fL Immature Gran % (Auto) 0.3 (0.0-0.4) % Neut % (Auto) 70.2 (45-73) % Lymph % (Auto) 18.3 L (20-40) % [place] % (Auto) 8.1 (2-11) % Eos % (Auto) 2.5 (0-4) % Baso % (Auto) 0.6 (0-2) % Lymph # (Auto) 1.9 (1.2-4.9) X10*3/uL [place] # (Auto) 0.8 (0.1-1.2) X10*3/uL Eos # (Auto) 0.3 (0.0-0.4) X10*3/uL Baso # (Auto) 0.1 (0.0-0.2) X10*3/uL Abs Immat Gran (auto) 0.03 (0.00-0.03) X10*3/uL Absolute Neuts (auto) 7.2 (2.0-8.3) x10*3/uL Absolute Nucleated RBC 0.000 (0.0-0.012) X10*3/uL Nucleated RBC % (auto) 0.0 (0.0-0.2) /100WBC Sodium (135-145) mmol/L Potassium (3.3-5.1) mmol/L Chloride (96-108) mmol/L Carbon Dioxide (22-29) mmol/L Anion Gap (12-20) BUN (9-16) mg/dL Creatinine (0.5-1.4) mg/dL Estim Creat Clear Calc Estimated GFR Random Glucose (60-115) mg/dL Lactic Acid (0.5-2.0) mmol/L Calcium (8.4-10.2) mg/dL Magnesium (1.6-2.6) mg/dL Total Bilirubin (0.0-1.0) mg/dL Direct Bilirubin (0.0-0.5) mg/dL AST (5-31) U/L ALT (0-31) U/L Alkaline Phosphatase (39-117) U/L Total Protein (6.5-8.0) g/dL Albumin (3.5-5.0) g/dL Urine Color Yellow Urine Appearance Clear Urine pH 6.5 (5.0-9.0) Ur Specific [place] 1.010 (1.005-1.025) Urine Protein Negative (Neg-Trace) mg/dL Urine Glucose (UA) Negative (Negative) mg/dL Urine Ketones Negative (Negative) mg/dL Urine Blood Moderate (2+) H (Negative) Urine Nitrite Negative (Negative) Ur Leukocyte Esterase Negative (Negative) Urine RBC 3-5 H (0-2) /HPF Urine WBC 0-5 (0-5) /HPF Ur Squamous Epith Cells 0-2 (0-2) /HPF Urine Bacteria None Seen (None Seen) Hyaline Casts 0-2 (0-2) /LPF COVID-19 (HIRA) Negative (Negative) COVID-19 Clin Com See Note 08/31/22 08/31/22 Range/Units 17:02 17:02 WBC (4.8-10.8) X10*3/uL RBC (4.20-5.50) X10*6/uL Hgb (12.0-16.0) g/dl Hct (37.0-47.0) % MCV (80.0-98.0) fL MCH (27.0-33.0) pg MCHC (31.0-35.0) g/dl RDW (11.0-16.0) % Plt Count (160-400) X10*3/uL MPV (9.4-12.3) fL Immature Gran % (Auto) (0.0-0.4) % Neut % (Auto) (45-73) % Lymph % (Auto) (20-40) % [place] % (Auto) (2-11) % Eos % (Auto) (0-4) % Baso % (Auto) (0-2) % Lymph # (Auto) (1.2-4.9) X10*3/uL [place] # (Auto) (0.1-1.2) X10*3/uL Eos # (Auto) (0.0-0.4) X10*3/uL Baso # (Auto) (0.0-0.2) X10*3/uL Abs Immat Gran (auto) (0.00-0.03) X10*3/uL Absolute Neuts (auto) (2.0-8.3) x10*3/uL Absolute Nucleated RBC (0.0-0.012) X10*3/uL Nucleated RBC % (auto) (0.0-0.2) /100WBC Sodium 138 (135-145) mmol/L Potassium 4.1 (3.3-5.1) mmol/L Chloride 102 (96-108) mmol/L Carbon Dioxide 26 (22-29) mmol/L Anion Gap 14 (12-20) BUN 13 (9-16) mg/dL Creatinine 0.74 (0.5-1.4) mg/dL Estim Creat Clear Calc 116.7 Estimated GFR > 60 Random Glucose 79 (60-115) mg/dL Lactic Acid 1.4 (0.5-2.0) mmol/L Calcium 9.5 D (8.4-10.2) mg/dL Magnesium 2.0 (1.6-2.6) mg/dL Total Bilirubin 0.8 (0.0-1.0) mg/dL Direct Bilirubin 0.2 (0.0-0.5) mg/dL AST 18 (5-31) U/L ALT 21 (0-31) U/L Alkaline Phosphatase 95 (39-117) U/L Total Protein 6.9 (6.5-8.0) g/dL Albumin 4.4 (3.5-5.0) g/dL Urine Color Urine Appearance Urine pH (5.0-9.0) Ur Specific [place] (1.005-1.025) Urine Protein (Neg-Trace) mg/dL Urine Glucose (UA) (Negative) mg/dL Urine Ketones (Negative) mg/dL Urine Blood (Negative) Urine Nitrite (Negative) Ur Leukocyte Esterase (Negative) Urine RBC (0-2) /HPF Urine WBC (0-5) /HPF Ur Squamous Epith Cells (0-2) /HPF Urine Bacteria (None Seen) Hyaline Casts (0-2) /LPF COVID-19 (HIRA) (Negative) COVID-19 Clin Com <Amnadeniz Shahschler, PA - Last Filed: 08/31/22 16:17> Lab Results 08/31/22 08/31/22 08/31/22 Range/Units 16:51 16:52 17:02 WBC 10.3 (4.8-10.8) X10*3/uL RBC 4.30 (4.20-5.50) X10*6/uL Hgb 13.5 (12.0-16.0) g/dl Hct 40.9 (37.0-47.0) % MCV 95.1 (80.0-98.0) fL MCH 31.4 (27.0-33.0) pg MCHC 33.0 (31.0-35.0) g/dl RDW 13.2 (11.0-16.0) % Plt Count 244 (160-400) X10*3/uL MPV 10.9 (9.4-12.3) fL Immature Gran % (Auto) 0.3 (0.0-0.4) % Neut % (Auto) 70.2 (45-73) % Lymph % (Auto) 18.3 L (20-40) % [place] % (Auto) 8.1 (2-11) % Eos % (Auto) 2.5 (0-4) % Baso % (Auto) 0.6 (0-2) % Lymph # (Auto) 1.9 (1.2-4.9) X10*3/uL [place] # (Auto) 0.8 (0.1-1.2) X10*3/uL Eos # (Auto) 0.3 (0.0-0.4) X10*3/uL Baso # (Auto) 0.1 (0.0-0.2) X10*3/uL Abs Immat Gran (auto) 0.03 (0.00-0.03) X10*3/uL Absolute Neuts (auto) 7.2 (2.0-8.3) x10*3/uL Absolute Nucleated RBC 0.000 (0.0-0.012) X10*3/uL Nucleated RBC % (auto) 0.0 (0.0-0.2) /100WBC Sodium (135-145) mmol/L Potassium (3.3-5.1) mmol/L Chloride (96-108) mmol/L Carbon Dioxide (22-29) mmol/L Anion Gap (12-20) BUN (9-16) mg/dL Creatinine (0.5-1.4) mg/dL Estim Creat Clear Calc Estimated GFR Random Glucose (60-115) mg/dL Lactic Acid (0.5-2.0) mmol/L Calcium (8.4-10.2) mg/dL Magnesium (1.6-2.6) mg/dL Total Bilirubin (0.0-1.0) mg/dL Direct Bilirubin (0.0-0.5) mg/dL AST (5-31) U/L ALT (0-31) U/L Alkaline Phosphatase (39-117) U/L Total Protein (6.5-8.0) g/dL Albumin (3.5-5.0) g/dL Urine Color Yellow Urine Appearance Clear Urine pH 6.5 (5.0-9.0) Ur Specific [place] 1.010 (1.005-1.025) Urine Protein Negative (Neg-Trace) mg/dL Urine Glucose (UA) Negative (Negative) mg/dL Urine Ketones Negative (Negative) mg/dL Urine Blood Moderate (2+) H (Negative) Urine Nitrite Negative (Negative) Ur Leukocyte Esterase Negative (Negative) Urine RBC 3-5 H (0-2) /HPF Urine WBC 0-5 (0-5) /HPF Ur Squamous Epith Cells 0-2 (0-2) /HPF Urine Bacteria None Seen (None Seen) Hyaline Casts 0-2 (0-2) /LPF COVID-19 (HIRA) Negative (Negative) COVID-19 Clin Com See Note 08/31/22 08/31/22 Range/Units 17:02 17:02 WBC (4.8-10.8) X10*3/uL RBC (4.20-5.50) X10*6/uL Hgb (12.0-16.0) g/dl Hct (37.0-47.0) % MCV (80.0-98.0) fL MCH (27.0-33.0) pg MCHC (31.0-35.0) g/dl RDW (11.0-16.0) % Plt Count (160-400) X10*3/uL MPV (9.4-12.3) fL Immature Gran % (Auto) (0.0-0.4) % Neut % (Auto) (45-73) % Lymph % (Auto) (20-40) % [place] % (Auto) (2-11) % Eos % (Auto) (0-4) % Baso % (Auto) (0-2) % Lymph # (Auto) (1.2-4.9) X10*3/uL [place] # (Auto) (0.1-1.2) X10*3/uL Eos # (Auto) (0.0-0.4) X10*3/uL Baso # (Auto) (0.0-0.2) X10*3/uL Abs Immat Gran (auto) (0.00-0.03) X10*3/uL Absolute Neuts (auto) (2.0-8.3) x10*3/uL Absolute Nucleated RBC (0.0-0.012) X10*3/uL Nucleated RBC % (auto) (0.0-0.2) /100WBC Sodium 138 (135-145) mmol/L Potassium 4.1 (3.3-5.1) mmol/L Chloride 102 (96-108) mmol/L Carbon Dioxide 26 (22-29) mmol/L Anion Gap 14 (12-20) BUN 13 (9-16) mg/dL Creatinine 0.74 (0.5-1.4) mg/dL Estim Creat Clear Calc 116.7 Estimated GFR > 60 Random Glucose 79 (60-115) mg/dL Lactic Acid 1.4 (0.5-2.0) mmol/L Calcium 9.5 D (8.4-10.2) mg/dL Magnesium 2.0 (1.6-2.6) mg/dL Total Bilirubin 0.8 (0.0-1.0) mg/dL Direct Bilirubin 0.2 (0.0-0.5) mg/dL AST 18 (5-31) U/L ALT 21 (0-31) U/L Alkaline Phosphatase 95 (39-117) U/L Total Protein 6.9 (6.5-8.0) g/dL Albumin 4.4 (3.5-5.0) g/dL Urine Color Urine Appearance Urine pH (5.0-9.0) Ur Specific [place] (1.005-1.025) Urine Protein (Neg-Trace) mg/dL Urine Glucose (UA) (Negative) mg/dL Urine Ketones (Negative) mg/dL Urine Blood (Negative) Urine Nitrite (Negative) Ur Leukocyte Esterase (Negative) Urine RBC (0-2) /HPF Urine WBC (0-5) /HPF Ur Squamous Epith Cells (0-2) /HPF Urine Bacteria (None Seen) Hyaline Casts (0-2) /LPF COVID-19 (HIRA) (Negative) COVID-19 Clin Com <Beulah Lewis NP - Last Filed: 08/31/22 20:55> Independent Interpretation I performed an independent interpretation of an: CT Scan <Beulah Lewis NP - Last Filed: 08/31/22 20:55> Radiology Impression Discussion of test interpretation with radiology: I have reviewed the radiologist's reading. <Beulah Lewis NP - Last Filed: 08/31/22 20:55> Radiologist Impression: EXAMINATION: CT ABDOMEN AND PELVIS WITHOUT CONTRAST? CLINICAL INFORMATION: Flank pain, side not specified COMPARISON: CT abdomen pelvis 08/02/2022, 1 month ago? TECHNIQUE: Multidetector volumetric imaging was performed from the superior aspect of the liver through the pubic symphysis. Sagittal and coronal reformatted images were obtained on the technologist's workstation.? This CT examination was performed using dose optimization techniques as appropriate, variously including the following: *Automated exposure control *Adjustment of mA and/or kV according to patient size (this includes techniques or standardized protocols for targeted exams where dose is matched to indication/reason for exam; i.e. extremities or head) *Use of iterative reconstruction technique DLP: 1044 mGy-cm FINDINGS: LUNG BASES: The visualized lung bases are unremarkable.? LIVER, GALLBLADDER, AND BILIARY TREE: The liver is enlarged measuring 19.9 cm in cephalocaudad dimension in size, shape, and attenuation. 2 small subcentimeter water density cysts are present in the right lobe of liver unchanged from prior (3:17 and 25). No worrisome solid focal hepatic lesion or biliary ductal dilatation is present. The gallbladder is unremarkable with no evidence of radiopaque gallstones, gallbladder wall thickening, or obvious pericholecystic inflammatory changes.? PANCREAS: Unremarkable.? SPLEEN: Unremarkable.? ADRENAL GLANDS: Unremarkable.? KIDNEYS AND URETERS: The kidneys are normal in size, shape, and attenuation. The previously seen perinephric stranding around the right kidney and ureter has resolved. No hydronephrosis, hydroureter, or calculi seen. ? BLADDER: Unremarkable.? GASTROINTESTINAL TRACT: The small and large bowel are unremarkable. The appendix is unremarkable.? ABDOMINAL WALL: Small periumbilical hernia containing only fat. There is a? LYMPH NODES: No retroperitoneal lymphadenopathy. VASCULAR: Unremarkable. PELVIC VISCERA: The uterus and adnexa are unremarkable.? OSSEOUS STRUCTURES: Degenerative changes are present in the lumbar spine most marked at L4-L5 and L5-S1. No bony destructive lesions.? CT/CT abdomen pelvis wo IV con IMPRESSION: 1.? A cause for the patient's flank pain has not been found. 2.? Incidental note made of an enlarged fatty liver, benign hepatic cysts and degenerative changes in the spine. ? Fleischner guidelines were followed. <Beulah Lewis NP - Last Filed: 08/31/22 20:55> External Record Review External record reviewed: Inpatient record, Outpatient record, Prior outpatient labs and Prior outpatient radiology <Beulah Lewis NP - Last Filed: 08/31/22 20:55> Prescription Management I considered prescription management with: Pain Medication <Beulah Lewis NP - Last Filed: 08/31/22 20:55> Tylenol, Motrin <Beulah Lewis NP - Last Filed: 08/31/22 20:55> Chronic Conditions Patient?s care impacted by: Hypertension <Beulah Lewis NP - Last Filed: 08/31/22 20:55> Discharge Plan Discharge Clinical Impression: Abdominal pain <BRITTNI Georges - Last Filed: 08/31/22 16:17> Patient Disposition: Home, Self-Care <BRITTNI Georges - Last Filed: 08/31/22 16:17> Instructions: Acute Abdominal Pain (ED) <BRITTNI Georges - Last Filed: 08/31/22 16:17> Additional Instructions: You were evaluated for abdominal and flank pain with hematuria. Your lab values are within normal limits, urinalysis is positive for blood with out bacteria or nitrites. You do not have a urinary tract infection. Your CT scan of abdomen pelvis is negative for acute findings. There is significant improvement with the inflammation found around your kidneys on 08/03/2022. Please follow-up with primary care physician. Alternate Tylenol 650 mg every 6 hours and Motrin 600 mg every 6 hours as needed for pain and fever management. Consider taking these medications 3 hours apart so you have pain and fever management every 3 hours. Write down what time you take these medications to prevent accidental overdose. Motrin is the same medication as Advil and ibuprofen. Tylenol is the same medication as acetaminophen. Thank you for choosing this emergency department for evaluation. Please fo llow-up with primary care physician as needed. Return to the emergency department for any new, concerning, or worsening symptoms. <BRITTNI Georges - Last Filed: 08/31/22 16:17> Prescriptions: No Action phenazopyridine [Pyridium] 200 mg tablet 200 mg PO TID Qty: 6 0RF cefuroxime axetil 500 mg tablet 500 mg PO BID Qty: 28 0RF <BRITTNI Georges - Last Filed: 08/31/22 16:17> Referrals: Ashwini Hernandez MD [Primary Care Provider] - 2 weeks (Abdominal pain) <BRITTNI Georges - Last Filed: 08/31/22 16:17>
[2022-08-31 16:13] VITALS: BP 178/95; PULSE 89; RESP 18; TEMP 36.6; O2SAT 97; BMI 47.8
[2022-08-31 17:10] LABS: MANUAL DIFF FLAG NO
[2022-08-31 17:17] LABS: Basophils Absolute Auto 0.1 X10*3/uL (0.0-0.2); Basophils Percent Auto 0.6 % (0-2); Eosinophils Absolute Auto 0.3 X10*3/uL (0.0-0.4); Eosinophils Percent Auto 2.5 % (0-4); Hematocrit 40.9 % (37.0-47.0); Hemoglobin 13.5 g/dl (12.0-16.0); Imm Gran Abs Auto 0.03 X10*3/uL (0.00-0.03); Imm Gran Pct Auto 0.3 % (0.0-0.4); Lymphocytes Absolute Auto 1.9 X10*3/uL (1.2-4.9); Lymphocytes Percent Auto 18.3 % (20-40); Mean Corpuscular Hemoglobin 31.4 pg (27.0-33.0); Mean Corpuscular Volume 95.1 fL (80.0-98.0); Mean Platelet Volume 10.9 fL (9.4-12.3); Monocytes Absolute Auto 0.8 X10*3/uL (0.1-1.2); Monocytes Percent Auto 8.1 % (2-11); Neutrophils Absolute Auto 7.2 x10*3/uL (2.0-8.3); Neutrophils Percent Auto 70.2 % (45-73); Platelet Count 244 X10*3/uL (160-400); Red Cell Distribution Width 13.2 % (11.0-16.0); White Blood Count 10.3 X10*3/uL (4.8-10.8)
[2022-08-31 17:24] LABS: Lactic Acid 1.4 mmol/L (0.5-2.0)
[2022-08-31 17:25] LABS: COVID-19 Test Negative (Negative); IDNOW Serial# BCCEAD1C
[2022-08-31 17:29] LABS: Alanine Aminotransferase 21 U/L (0-31); Albumin Level 4.4 g/dL (3.5-5.0); Alkaline Phosphatase 95 U/L (39-117); Anion Gap 14 (12-20); Aspartate Amino Transferase 18 U/L (5-31); Bilirubin Direct 0.2 mg/dL (0.0-0.5); Bilirubin Total 0.8 mg/dL (0.0-1.0); Blood Urea Nitrogen 13 mg/dL (9-16); Calcium 9.5 mg/dL (8.4-10.2); Carbon Dioxide 26 mmol/L (22-29); Chloride 102 mmol/L (96-108); Creatinine Clr Calc Pharmacy 116.7; Estimated Glomerular Filt Rate > 60; Glucose Random 79 mg/dL (60-115); Potassium 4.1 mmol/L (3.3-5.1); Sodium 138 mmol/L (135-145); Total Protein 6.9 g/dL (6.5-8.0)
[2022-08-31 17:47] LABS: Appearance Urine Clear; Color Urine Yellow; Glucose Urine UA Negative (Negative); Leukocyte Esterase Urine Negative (Negative); Nitrite Urine Negative (Negative); PH 6.5 (5.0-9.0); UMIC TRIGGER UACC YES; Urine Blood Moderate (2+) (Negative); Urine Ketones Negative (Negative); Urine Protein Negative (Neg-Trace)
[2022-08-31 18:01] LABS: Bacteria Urine None Seen (None Seen); Hyaline Casts Urine 0-2 /LPF (0-2); Squamous Epithelial Cell Urine 0-2 /HPF (0-2); WBC Urine 0-5 /HPF (0-5)
[2022-08-31] MEDS: Ketorolac Tromethamine 15 MG/ML VIAL IVPUSH (18:52)
[2022-08-31] MEDS: ondansetron HCL 4 MG/2 ML VIAL IVPUSH (18:52)
[2022-08-31] MEDS: Morphine Sulfate 4 MG/ML CARTRIDGE IVPUSH (18:52)
[2022-08-31] MEDS: 0.9 % Sodium Chloride 1,000 ML 999 ML IVCONT (18:52)
[2022-08-31 18:53] VITALS: BP 153/92; PULSE 89; RESP 20; TEMP 36.8; O2SAT 96
[2022-08-31 21:03] VITALS: BP 146/84; PULSE 78; RESP 18; TEMP 36.9; O2SAT 96
== END 2022-08-31 21:10 | disposition home or self-care (01) ==
PROVIDERS: Physician Assistant; Emergency Provider Emergency Medicine; PCP Internal Medicine
DX: R31.9 Hematuria, unspecified (principal); R10.32 Left lower quadrant pain; R11.0 Nausea; Z20.822 Contact with and (suspected) exposure to COVID-19; Z20.828 Contact with and (suspected) exposure to other viral communicable diseases; Z79.899 Other long term (current) drug therapy
CPT/HCPCS: 74176; 80048; 80076; 81001; 83605; 83735; 85025; 87040; 87635; 96374; 96375; 99284; J1885; J2270; J2405

== ENCOUNTER 2023-05-27 08:47 | Outpatient (AMB) | payer OTHER, SELFPAY ==
[2023-05-27 09:55] VITALS: BP 150/100; PULSE 96; TEMP 36.3; O2SAT 98; BMI 50.3
--- NOTE | 2023-05-27 09:55 | AM.OFFWIN_ITS ---
Intake Vital Signs 05/27/23 09:55 Height 5 ft 3 in Weight 284 lb BMI 50.3 BP 150/100 H Blood Pressure Location Lt brachial Position Sitting Pulse 96 Pulse Source Pulse Oximeter Temp 97.4 F Temp Source Temporal Artery Scan Pulse Oximetry (%) 98 Oxygen Delivery Method Room Air Intake Visit Reasons: [employer]FORMATION [employer] ?Sinus infection [phone] Intake Note: pt is here today for sinus infection started 3 \wks ago Patient Tobacco Use Status: Never used Tobacco Allergies shellfish derived Allergy (Verified 05/27/23 09:57) Swelling Do you need a note to return to daycare/school/sports/work: No HPI HPI Comments History of Present Illness Details She presents to office with sinus pressure/congestion x 3 weeks + sinus pressure, L ear blockage and cou gh She said coughing up green mucus + some SOB x 2 days She denies fevers No R ear pain Tried sudafed and other OTC medicine + HTN but said always has incorrect read with cuff being wrong size She watched BP at home usually systolic 130s She denies CP or palpitations. + headache in sinuses Some dizziness only with coughing spells. No dizziness with other activity PFSH Social History Household Members: Children Housing: House Do you presently have visiting nurse or other home services: No Alcohol intake: current Alcohol intake frequency: a few times a month Alcohol type: beer and hard liquor Patient Tobacco Use Status: Never used Tobacco service: No Current occupational status: employed Review of Systems Const Denies body aches, Denies chills, Denies fever(s) and Reports headache(s) Eyes Denies blurry vision and Denies change in vision ENT Reports dizziness (only with coughing fits), Reports otalgia, Reports headache(s), Reports nasal congestion, Reports nasal discharge, Reports sinus pain, Reports sinus pressure and Denies throat swelling Card Denies chest pain, Denies syncope, Denies rapid heart rate and Reports dyspnea Resp Reports chest congestion, Reports cough and Reports dyspnea Musc Denies abnormal gait and Denies myalgias Neuro Denies abnormal gait, Reports dizziness (only with coughing fits), Denies syncop e, Reports headache(s), Denies lack of coordination and Denies focal weakness Aller/Immun Denies throat swelling Physical Exam Vital Signs: Last Vital Signs Temp 97.4 F 05/27/23 09:55 Pulse 96 05/27/23 09:55 BP 150/100 H 05/27/23 09:55 Pulse Ox 98 05/27/23 09:55 Oxygen Delivery Method Room Air 05/27/23 09:55 BMI result Body Mass Index 50.3 General: Non-toxic, NAD. Speaking full sentences. Skin: Warm dry throughout Eye: EOMI, PERRL HENT: Airway patent. Uvula midline. No pharyngeal erythema or edema. 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 + fluid behind bilateral TMs and they are erythematous. Bilateral canals clear. TM non-bulging. No TM perforation or hemotympanum noted.Lymph: No lymphadenopathy noted Respiratory: CTA bilaterally. No wheezes, rales or rhonchi Cardiac: RRR. No murmur MSK: Full ROM extremities. Neurology: A/O. No aphasia or facial droop. Gait without abnormality Psych: Good mood and affect Assessment & Plan Assessment & Plan (1) Hypertension: Code(s): I10 - Essential (primary) hypertension Qualifiers: Hypertension type: unspecified Qualified Code(s): I10 - Essential (primary) hypertension Plan: She said this is baseline at MDs She checks at home We discussed ER protocol for worsening symptoms of uncontrolled HTN and she is aware. She will monitor at home and stop OTC decongestand use. (2) Sinusitis: Code(s): J32.9 - Chronic sinusitis, unspecified Qualifiers: Sinusitis location: maxillary Chronicity: acute Recurrence: non- recurrent Qualified Code(s): J01.00 - Acute maxillary sinusitis, unspecified Plan: Patient seen and evaluated. + sinusitis on exam Augmentin with food; avoid alcohol F/U with PCP Patient gave verbal understanding and had no additional questions or concerns at time of discharge All questions answered Medications: New amoxicillin-pot clavulanate 875-125 mg 1 tab PO Q12H 20 tabs 0RF J32.9 - Chronic sinusitis, unspecified Coding Level of Care Code New Pt Level 3 (60195) Diagnoses Hypertension, unspecified type I10 Hypertension type: unspecified Acute non-recurrent maxillary sinusitis J01.00 Sinusitis location: maxillary Chronicity: acute Recurrence: non-recurrent
== END 2023-05-27 10:54 | disposition home or self-care (01) ==
PROVIDERS: PCP Internal Medicine; Visit Provider Physician Assistant
DX: I10 Essential (primary) hypertension (principal); J01.00 Acute maxillary sinusitis, unspecified
CPT/HCPCS: 99203